=== PATIENT | male | born 1960 | race Two or more races ===

== ENCOUNTER 2017-02-17 09:33 | Day surgery (SDC) | payer BC ==
[2017-02-13 12:00] VITALS: BMI 25.7
[~2017-02-17 09:33] MED LIST: LACTATED RINGERS 1,000 ML IV SCH
[2017-02-17 10:38] VITALS: RESP 16; TEMP 97
[2017-02-17] MEDS ORDERED: LIDOCAINE 1% 20 ML VIAL (10MG/ML) FOR IV START INTRADERMA ONE (10:43)
[2017-02-17] MEDS ORDERED: PROPOFOL 10 MG/ML 20 ML VIAL IV ONE (11:23)
[2017-02-17] MEDS ORDERED: fentaNYL (PF) 50 MCG/ML 2 ML AMP ONE (11:23)
[2017-02-17] MEDS ORDERED: MIDAZOLAM 2 MG/2 ML VIAL ONE (11:23)
--- NOTE | 2017-02-17 12:03 | P.PCN ---
Date of Procedure: 02/17/17 Procedure(s) Performed: Procedure: Colonoscopy and biopsy. Preoperative diagnosis: Screening for neoplasia. Postoperative diagnosis: Diminutive rectal polyps biopsied, otherwise, exam to the cecum within normal limits. Preparation: HalfLytely prep. Sedation: Was provided by anesthesia. Brief clinical history: The patient is a 56-year-old male who is referred for this evaluation for screening for neoplasia age being his risk factor. The patient has no abdominal complaints, bleeding or anemia. No family history of colon cancer. This would be his first colonoscopy. Procedure: With the patient on his left lateral decubitus position and after informed consent and adequate sedation, the perianal area was inspected and it did not show any fissures or fistulas. He were no masses felt on digital rectal examination. The Olympus CFQ 160L video colonoscope was then inserted in the rectum in the usual fashion and advanced to the cecum. The mucosa appeared healthy. Few diminutive rectal polyps were noted but there was no significant polyps or tumors or any obvious diverticular disease. I biopsied the rectal polyps then I retroflexed endoscope in the rectum before the endoscope was withdrawn. The patient tolerated the procedure well. Plan: The patient was reassured. Will await biopsy results. I anticipate repeating this exam in 5 years. He will follow up with you as planned.
[2017-02-17 12:14] VITALS: BP 118/75; PULSE 58
== END 2017-02-17 12:43 | disposition home or self-care (01) ==
LOC: ORWHC2ENDO 09:33
DX: Z12.11 Encounter for screening for malignant neoplasm of colon (principal); K62.1 Rectal polyp; I10 Essential (primary) hypertension; E07.9 Disorder of thyroid, unspecified; Z79.1 Long term (current) use of non-steroidal anti-inflammatories (NSAID); Z79.899 Other long term (current) drug therapy; Z88.1 Allergy status to other antibiotic agents; Z88.5 Allergy status to narcotic agent; Z88.8 Allergy status to other drugs, medicaments and biological substances
CPT/HCPCS: 88305; 45380; J2250; J3010; J2704

== ENCOUNTER → 2018-07-20 | Outpatient (CLI) | payer BC | END | disposition home or self-care (01) | LOC: LABWHC1 10:24 | PROVIDERS: ATTEND Urology | DX: C61 Malignant neoplasm of prostate (principal); R97.21 Rising PSA following treatment for malignant neoplasm of prostate | CPT/HCPCS: 36415; 84153 ==

== ENCOUNTER → 2019-02-01 | Outpatient (CLI) | payer BC | LOC: LABWHC1 10:20 | PROVIDERS: ATTEND Urology | DX: R97.20 Elevated prostate specific antigen [PSA] (principal) | CPT/HCPCS: 36415; 84153 ==

== ENCOUNTER → 2020-02-04 | Outpatient (CLI) | payer BC | END | disposition home or self-care (01) | LOC: LABWHC1 08:50 | PROVIDERS: ATTEND Urology | DX: C61 Malignant neoplasm of prostate (principal) | CPT/HCPCS: 36415; 84153 ==

== ENCOUNTER 2021-03-15 17:17 | Emergency (ER) | payer BC ==
[2021-03-15 17:23] VITALS: TEMP 98.3
[2021-03-15] MEDS ORDERED: SODIUM CHLORIDE 0.9% 1,000 ML IV STA (18:11)
--- NOTE | 2021-03-15 18:19 | ED ---
General Adult HPI - General Chief complaint: Abdominal Pain Stated complaint: Abd pain Time Seen by Provider: 03/15/21 17:59 Source: patient Mode of arrival: ambulatory Limitations: no limitations - History of Present Illness Initial comments: 50-year-old male with a past medical history of hyperlipidemia hypertension, prostate cancer, thyroid disorder presents to the emergency room for a chief complaint of abdominal pain. Patient reports this pain has been ongoing for about 2-3 weeks. States it is all over his abdomen. Patient states he is heidi rned because he had his prostate removed secondary to prostate cancer 6 years ago. Apparently his PSA is elevated and he is concerned it could be related to the prostate cancer. Patient denies nausea vomiting diarrhea. Denies fevers or chills. Patient states bowel movements are normal.Patient has no other complaints at this time including shortness of breath, chest pain, nausea or vomiting, headache, or visual changes. - Related Data Home Medications Medication Instructions Recorded Confirmed Levothyroxine Sodium [Synthroid] 112 mcg PO DAILY 02/13/17 03/15/21 amLODIPine [Norvasc] 5 mg PO DAILY 03/15/21 03/15/21 lisinopriL 20 mg PO DAILY 03/15/21 03/15/21 Allergies Allergy/AdvReac Type Severity Reaction Status Date / Time cephalexin monohydrate AdvReac Itching Verified 03/15/21 19:42 [From Keflex] simvastatin AdvReac Itching Verified 03/15/21 19:42 tramadol HCl [From Ultram] AdvReac Itching Verified 03/15/21 19:42 Review of Systems ROS Statement: Those systems with pertinent positive or pertinent negative responses have been documented in the HPI. ROS Other: All systems not noted in ROS Statement are negative. Past Medical History Past Medical History: Cancer, Hyperlipidemia, Hypertension, Prostate Disorder, Thyroid Disorder Additional Past Medical History / Comment(s): Hx of shingles with nerve pain., back pain and right shoulder pain., hx of prostate cancer-states recent labs that he is concerned that cancer may have returned. History of Any Multi-Drug Resistant Organisms: None Reported Past Surgical History: Appendectomy, Tonsillectomy Additional Past Surgical History / Comment(s): 02-23-15 robotic assisted prostatectomy,bilateral lymphadenectomy, sinus sx, prostate bx., ear tubes Past Anesthesia/Blood Transfusion Reactions: No Reported Reaction Past Psychological History: No Psychological Hx Reported Smoking Status: Never smoker Past Alcohol Use History: None Reported Past Drug Use History: None Reported - Past Family History Sister(s) Family Medical History: Coronary Artery Disease (CAD), Diabetes Mellitus, Myocardial Infarction ([place]), Vascular Disorder Mother Family Medical History: Hypertension General Exam Limitations: no limitations General appearance: alert, in no apparent distress Head exam: Present: atraumatic, normocephalic, normal inspection Eye exam: Present: normal appearance, PERRL, EOMI. Absent: scleral icterus, conjunctival injection, periorbital swelling ENT exam: Present: normal exam, mucous membranes moist Neck exam: Present: normal inspection, full ROM. Absent: tenderness, meningismus, lymphadenopathy Respiratory exam: Present: normal lung sounds bilaterally. Absent: respiratory distress, wheezes, rales, rhonchi, stridor Cardiovascular Exam: Present: regular rate, normal rhythm, normal heart sounds GI/Abdominal exam: Present: soft, normal bowel sounds. Absent: distended, tenderness, guarding, rebound, rigid Neurological exam: Present: alert Course Vital Signs 03/15/21 03/15/21 17:21 20:30 Temperature 98.3 F Pulse Rate 73 80 Respiratory 20 18 Rate Blood Pressure 131/79 140/76 O2 Sat by Pulse 99 99 Oximetry - Reevaluation(s) Reevaluation #1: 03/15/21 18:19 Patient declines pain medication at this time. Medical Decision Making - Medical Decision Making Vitals are stable. CBC CMP unremarkable. Mild dehydration on her patient was given a liter of fluids. Lactic acid is normal. Urinalysis is unremarkable. CT abdomen and pelvis shows no definite acute process. There is moderate urinary bladder distention. However patient did have a large void after CT. Bladder scan was performed and 0 mL's were discovered. Patient declined any pain medication. At this time patient will be discharged home to follow up with urology and GI. He will return here for any worsening symptoms. - Lab Data Result diagrams: 03/15/21 18:21 03/15/21 18: Lab Results 03/15/21 03/15/21 03/15/21 Range/Units 18:21 18:21 18:21 WBC 9.1 (3.8-10.6) k/uL RBC 4.39 (4.30-5.90) m/uL Hgb 14.4 (13.0-17.5) gm/dL Hct 41.8 (39.0-53.0) % MCV 95.1 (80.0-100.0) fL MCH 32.8 (25.0-35.0) pg MCHC 34.5 (31.0-37.0) g/dL RDW 12.6 (11.5-15.5) % Plt Count 293 (150-450) k/uL MPV 7.4 Neutrophils % 71 % Lymphocytes % 19 % Monocytes % 7 % Eosinophils % 2 % Basophils % 0 % Neutrophils # 6.5 (1.3-7.7) k/uL Lymphocytes # 1.7 (1.0-4.8) k/uL Monocytes # 0.6 (0-1.0) k/uL Eosinophils # 0.1 (0-0.7) k/uL Basophils # 0.0 (0-0.2) k/uL Sodium 137 (137-145) mmol/L Potassium 4.5 (3.5-5.1) mmol/L Chloride 104 (98-107) mmol/L Carbon Dioxide 23 (22-30) mmol/L Anion Gap 10 mmol/L BUN 22 H (9-20) mg/dL Creatinine 1.05 (0.66-1.25) mg/dL Est GFR (CKD-EPI)AfAm >90 (>60 ml/min/1.73 sqM) Est GFR (CKD-EPI)NonAf 78 (>60 ml/min/1.73 sqM) Glucose 85 (74-99) mg/dL Plasma Lactic Acid Moses (0.7-2.0) mmol/L Calcium 9.7 (8.4-10.2) mg/dL Total Bilirubin 0.5 (0.2-1.3) mg/dL AST 25 (17-59) U/L ALT 18 (4-49) U/L Alkaline Phosphatase 66 (38-126) U/L Total Protein 7.0 (6.3-8.2) g/dL Albumin 4.3 (3.5-5.0) g/dL Amylase 45 (30-110) U/L Lipase 93 (23-300) U/L Urine Color Light Yellow Urine Appearance Clear (Clear) Urine pH 6.5 (5.0-8.0) Ur Specific [place] 1.007 (1.001-1.035) Urine Protein Negative (Negative) Urine Glucose (UA) Negative (Negative) Urine Ketones Negative (Negative) Urine Blood Negative (Negative) Urine Nitrite Negative (Negative) Urine Bilirubin Negative (Negative) Urine Urobilinogen <2.0 (<2.0) mg/dL Ur Leukocyte Esterase Negative (Negative) 03/15/21 Range/Units 18:21 WBC (3.8-10.6) k/uL RBC (4.30-5.90) m/uL Hgb (13.0-17.5) gm/dL Hct (39.0-53.0) % MCV (80.0-100.0) fL MCH (25.0-35.0) pg MCHC (31.0-37.0) g/dL RDW (11.5-15.5) % Plt Count (150-450) k/uL MPV Neutrophils % % Lymphocytes % % Monocytes % % Eosinophils % % Basophils % % Neutrophils # (1.3-7.7) k/uL Lymphocytes # (1.0-4.8) k/uL Monocytes # (0-1.0) k/uL Eosinophils # (0-0.7) k/uL Basophils # (0-0.2) k/uL Sodium (137-145) mmol/L Potassium (3.5-5.1) mmol/L Chloride (98-107) mmol/L Carbon Dioxide (22-30) mmol/L Anion Gap mmol/L BUN (9-20) mg/dL Creatinine (0.66-1.25) mg/dL Est GFR (CKD-EPI)AfAm (>60 ml/min/1.73 sqM) Est GFR (CKD-EPI)NonAf (>60 ml/min/1.73 sqM) Glucose (74-99) mg/dL Plasma Lactic Acid Moses 0.6 L (0.7-2.0) mmol/L Calcium (8.4-10.2) mg/dL Total Bilirubin (0.2-1.3) mg/dL AST (17-59) U/L ALT (4-49) U/L Alkaline Phosphatase (38-126) U/L Total Protein (6.3-8.2) g/dL Albumin (3.5-5.0) g/dL Amylase (30-110) U/L Lipase (23-300) U/L Urine Color Urine Appearance (Clear) Urine pH (5.0-8.0) Ur Specific [place] (1.001-1.035) Urine Protein (Negative) Urine Glucose (UA) (Negative) Urine Ketones (Negative) Urine Blood (Negative) Urine Nitrite (Negative) Urine Bilirubin (Negative) Urine Urobilinogen (<2.0) mg/dL Ur Leukocyte Esterase (Negative) Disposition Clinical Impression: Abdominal pain Disposition: HOME SELF-CARE Condition: Good Instructions (If sedation given, give patient instructions): Abdominal Pain (ED) Additional Instructions: Please follow-up with your doctor in one to 2 days. Follow-up with GI and urology as well. Return to the emergency room for any worsening symptoms. Is patient prescribed a controlled substance at d/c from ED?: No Referrals: Carlos Balderas MD [Primary Care Provider] - 1-2 days Daylin Jones MD [STAFF PHYSICIAN] - 1-2 days Jet Coles MD [STAFF PHYSICIAN] - 1-2 days Time of Disposition: 20:33
[2021-03-15 18:38] LABS: Appearance,Urine Clear (Clear); Basophils % (A) 0 %; Bilirubin,Urine Negative (Negative); Blood,Urine Negative (Negative); Color,Urine Light Yellow; Eosinophils # (A) 0.1 k/uL (0-0.7); Eosinophils % (A) 2 %; Glucose,Urine (UA) Negative (Negative); HCT 41.8 % (39.0-53.0); HGB 14.4 gm/dL (13.0-17.5); Ketones,Urine Negative (Negative); Leukocyte Esterase,Urine Negative (Negative); Lymphocytes # (A) 1.7 k/uL (1.0-4.8); Lymphocytes % (A) 19 %; MCH 32.8 pg (25.0-35.0); MCHC 34.5 g/dL (31.0-37.0); MCV 95.1 fL (80.0-100.0); Mean Platelet Volume 7.4; Monocytes # (A) 0.6 k/uL (0-1.0); Monocytes % (A) 7 %; Neutrophils # (A) 6.5 k/uL (1.3-7.7); Neutrophils % (A) 71 %; Nitrite,Urine Negative (Negative); PH, Urine 6.5 (5.0-8.0); Platelet Count 293 k/uL (150-450); Protein,Urine Negative (Negative); RBC 4.39 m/uL (4.30-5.90); RDW 12.6 % (11.5-15.5); Specific Gravity,Urine 1.007 (1.001-1.035); Urobilinogen,Urine <2.0 mg/dL (<2.0); WBC 9.1 k/uL (3.8-10.6)
[2021-03-15 18:48] LABS: ALT 18 U/L (4-49); AST 25 U/L (17-59); African American GFR (CKD) >90 (>60 ml/min/1.73 sqM); Albumin 4.3 g/dL (3.5-5.0); Alkaline Phosphatase 66 U/L (38-126); Amylase 45 U/L (30-110); Anion Gap 10 mmol/L; Blood Urea Nitrogen 22 mg/dL (9-20); Calcium 9.7 mg/dL (8.4-10.2); Carbon Dioxide 23 mmol/L (22-30); Chloride 104 mmol/L (98-107); Glucose 85 mg/dL (74-99); Lipase 93 U/L (23-300); Non-African American GFR(CKD) 78 (>60 ml/min/1.73 sqM); Potassium 4.5 mmol/L (3.5-5.1); Sodium 137 mmol/L (137-145); Total Bilirubin 0.5 mg/dL (0.2-1.3)
--- NOTE | 2021-03-15 19:34 | CT ---
EXAMINATION TYPE: CT abdomen pelvis w con DATE OF EXAM: 03/15/2021 COMPARISON: Abdominal pain generalized; history of prostate carcinoma HISTORY: Generalized abdominal pain x 3 weeks. History of prostate cancer. CT DLP: 945.6 mGycm Automated exposure control for dose reduction was used. TECHNIQUE: Helical acquisition of images was performed from the lung bases through the pelvis. CONTRAST: Performed without Oral Contrast and with IV Contrast, patient injected with 100 mL of Isovu e 300. FINDINGS: LUNG BASES: No significant abnormality is appreciated. LIVER/GB: No significant abnormality is appreciated. PANCREAS: No significant abnormality is seen. SPLEEN: No significant abnormality is seen. ADRENALS: No significant abnormality is seen. KIDNEYS: No significant abnormality is seen. FREE AIR: No free air is visualized. RETROPERITONEAL ADENOPATHY: None visualized REPRODUCTIVE ORGANS: No significant abnormality is seen URINARY BLADDER: Moderate urinary bladder distention is noted. PELVIC ADENOPATHY: None visualized. OSSEOUS STRUCTURES: No significant abnormality is seen. BOWEL: No significant abnormality is seen. OTHER: No acute vascular findings. IMPRESSION: NO DEFINITE ACUTE PROCESS. MODERATE URINARY BLADDER DISTENTION NOTED.
[2021-03-15 20:31] VITALS: BP 140/76; PULSE 80; RESP 18
== END 2021-03-15 20:42 | disposition home or self-care (01) ==
LOC: EC 17:17
DX: R10.84 Generalized abdominal pain (principal); E78.5 Hyperlipidemia, unspecified; I10 Essential (primary) hypertension; Z85.46 Personal history of malignant neoplasm of prostate
CPT/HCPCS: 51798; 36415; 80053; 82150; 83605; 83690; 85025; 81003; 74177; 99284; Q9967

== ENCOUNTER → 2021-05-15 | Outpatient (CLI) | payer BC | END | disposition home or self-care (01) | LOC: LABWHC1 16:16 | PROVIDERS: ATTEND Urology | DX: C61 Malignant neoplasm of prostate (principal) | CPT/HCPCS: 36415; 84153 ==

== ENCOUNTER → 2021-09-19 | Outpatient (CLI) | payer BC | END | disposition home or self-care (01) | LOC: LABWHC1 16:13 | PROVIDERS: ATTEND Radiology Radiation Oncology | DX: C61 Malignant neoplasm of prostate (principal); Z90.79 Acquired absence of other genital organ(s) | CPT/HCPCS: 36415; 84153 ==

== ENCOUNTER 2021-11-05 16:15 | Emergency (ER) | payer BC ==
[2021-11-05 16:26] VITALS: BP 156/78; PULSE 82; RESP 16; TEMP 98.3
--- NOTE | 2021-11-05 17:39 | ED ---
General Adult HPI - General Chief complaint: Extremity Problem,Nontraumatic Stated complaint: Right Knee Pain Time Seen by Provider: 11/05/21 17:30 Source: patient, family, RN notes reviewed, old records reviewed Mode of arrival: ambulatory Limitations: no limitations - History of Present Illness Initial comments: 61-year-old male presents with right knee swelling since yesterday. He states that the swelling has gone down however he does have pain behind the knee. He denies any trauma. He denies any fevers. He states that yesterday when he was walking and the knee started swelling and he developed some numbness that has resolved at this time. He describes the pain as an ache, 1 out of 10. He has had swelling in one of his knees in the past and it was drained. He seen Dr. Virgen a couple of weeks ago for left shoulder pain and has an MRI scheduled. He does have a history of prostate cancer and had treatment in July. -: days(s) (2) Location: right, lower extremity (knee) Radiation: non-radiation Severity scale (1-10): 1 Quality: aching Consistency: intermittent Improves with: none Worsens with: none Associated Symptoms: denies other symptoms Treatments Prior to Arrival: none - Related Data Home Medications Medication Instructions Recorded Confirmed Levothyroxine Sodium [Synthroid] 112 mcg PO DAILY 02/13/17 03/15/21 amLODIPine [Norvasc] 5 mg PO DAILY 03/15/21 03/15/21 lisinopriL [Prinivil] 20 mg PO DAILY 03/15/21 03/15/21 Allergies Allergy/AdvReac Type Severity Reaction Status Date / Time cephalexin monohydrate AdvReac Itching Verified 11/05/21 16:24 [From Keflex] simvastatin AdvReac Itching Verified 11/05/21 16:24 tramadol HCl [From Ultram] AdvReac Itching Verified 11/05/21 16:24 Review of Systems ROS Statement: Those systems with pertinent positive or pertinent negative responses have been documented in the HPI. ROS Other: All systems not noted in ROS Statement are negative. Past Medical History Past Medical History: Cancer, Hyperlipidemia, Hypertension, Prostate Disorder, Thyroid Disorder Additional Past Medical History / Comment(s): Hx of shingles with nerve pain., back pain and right shoulder pain., hx of prostate cancer-states recent labs that he is concerned that cancer may have returned. History of Any Multi-Drug Resistant Organisms: None Reported Past Surgical History: Appendectomy, Tonsillectomy Additional Past Surgical History / Comment(s): 02-23-15 robotic assisted prostatectomy,bilateral lymphadenectomy, sinus sx, prostate bx., ear tubes Past Anesthesia/Blood Transfusion Reactions: No Reported Reaction Past Psychological History: No Psychological Hx Reported Smoking Status: Never smoker Past Alcohol Use History: None Reported Past Drug Use History: None Reported - Past Family History Sister(s) Family Medical History: Coronary Artery Disease (CAD), Diabetes Mellitus, Myocardial Infarction ([place]), Vascular Disorder Mother Family Medical History: Hypertension General Exam Limitations: no limitations General appearance: alert, in no apparent distress Eye exam: Present: normal appearance Respiratory exam: Present: normal lung sounds bilaterally. Absent: respiratory distress, wheezes, rales, rhonchi, stridor, chest wall tenderness, accessory muscle use, decreased breath sounds Cardiovascular Exam: Present: regular rate, normal rhythm, normal heart sounds. Absent: systolic murmur, diastolic murmur, rubs, gallop, clicks Right Knee exam: Present: full ROM, swelling, effusion, full knee extension. Absent: tenderness, abrasion, laceration, ecchymosis, deformity, crepitus, dislocation, erythema Lower Leg exam: Present: normal inspection, full ROM. Absent: tenderness, swelling Neurovascular tendon exam: Present: no vascular compromise. Absent: abnormal cap refill Neurological exam: Present: alert, oriented X3 Psychiatric exam: Present: normal affect, normal mood Skin exam: Present: warm, dry, intact, normal color. Absent: rash, cyanosis, diaphoretic Course Vital Signs 11/05/21 16:24 Temperature 98.3 F Pulse Rate 82 Respiratory 16 Rate Blood Pressure 156/78 O2 Sat by Pulse 99 Oximetry Medical Decision Making - Medical Decision Making 61-year-old male presents with right knee swelling since yesterday. He denies any trauma. He denies any fevers. He states that it developed yesterday when he was walking. He does have a history of prostate cancer and had treatment in July. Ultrasound of the right lower extremity shows no evidence of DVT. Patient states that swelling has gone down and he is able to bear weight. This appears to be a bursitis patient does have history of bursitis in his knee and has had it drained in the past. He has full range of motion in the joint is not erythematous or warm. He is afebrile. He'll be referred to orthopedics for continuation of care. Patient is ambulatory he will be referred back to orthopedics Dr. Nayak for continuation of care. I did direct him to rest, ice and elevate the leg until seen by orthopedics. Return to the emergency room with any new or concerning symptoms. Case discussed with Dr. Bueno Disposition Clinical Impression: Swelling of knee joint, right Disposition: HOME SELF-CARE Condition: Good Instructions (If sedation given, give patient instructions): Swollen Knee Joint (ED) Additional Instructions: Rest, ice and elevate the right leg. Follow-up with the orthopedic doctor this week. Return to the emergency room with any new or concerning symptoms. Is patient prescribed a controlled substance at d/c from ED?: No Referrals: Teofilo Barclay [Primary Care Provider] - 1-2 days Time of Disposition: 19:04
--- NOTE | 2021-11-05 18:47 | US ---
EXAMINATION TYPE: US venous doppler duplex LE RT DATE OF EXAM: 11/05/2021 6:14 PM COMPARISON: NONE CLINICAL HISTORY: pain. Pain. No hx of DVT. Patient not taking blood thinners. SIDE PERFORMED: Right TECHNIQUE: The lower extremity deep venous system is examined utilizing real time linear array sonog bobby with graded compression, doppler sonography and color-flow sonography. VESSELS IMAGED: Common Femoral Vein Deep Femoral Vein Greater Saphenous Vein * Femoral Vein Popliteal Vein Small Saphenous Vein * Proximal Calf Veins (* superficial vessels) Right Leg: No evidence of DVT in veins imaged at this time. IMPRESSION: No evidence of deep vein thrombosis in the right leg.
== END 2021-11-05 19:16 | disposition home or self-care (01) ==
LOC: EC 16:15
DX: R22.41 Localized swelling, mass and lump, right lower limb (principal); E78.5 Hyperlipidemia, unspecified; I10 Essential (primary) hypertension; E07.9 Disorder of thyroid, unspecified; Z88.1 Allergy status to other antibiotic agents; Z85.46 Personal history of malignant neoplasm of prostate; Z90.49 Acquired absence of other specified parts of digestive tract
CPT/HCPCS: 99283

== ENCOUNTER → 2021-11-09 | Outpatient (CLI) | payer BC ==
--- NOTE | 2021-11-10 02:57 | MR ---
EXAMINATION TYPE: MR shoulder LT wo con DATE OF EXAM: 11/09/2021 COMPARISON: None HISTORY: Left shoulder pain x 6 mos, no trauma. Multiplanar multiecho imaging of the left shoulder without contrast. There is small amount of fluid around the biceps tendon. The glenoid robbie appear intact. There is de fect in the posterior aspect of the glenoid with fluid signal that could relate to old trauma. The AC joint is intact. There is no subacromial impingement. The supraspinatus tendon appears fairly normal. There is no retraction. I see no evidence of a full-thickness tear present. IMPRESSION: No evidence of rotator cuff tear. Increased fluid signal in the posterior glenoid with cortical defor mity that could relate to an old fracture. No acute fracture seen.
== END | disposition home or self-care (01) ==
LOC: RADMRIMAIN 17:26
PROVIDERS: ATTEND Orthopaedic Surgery
DX: M21.822 Other specified acquired deformities of left upper arm (principal)

== ENCOUNTER → 2022-01-07 | Outpatient (CLI) | payer BC | END | disposition home or self-care (01) | LOC: LABWHC1 16:15 | PROVIDERS: ATTEND Radiology Radiation Oncology | DX: C61 Malignant neoplasm of prostate (principal); R35.1 Nocturia; Z90.79 Acquired absence of other genital organ(s) | CPT/HCPCS: 36415; 84153 ==

== ENCOUNTER 2022-07-08 18:46 | Emergency (ER) | payer BC ==
[2022-07-08 18:59] VITALS: RESP 16; TEMP 97.9
[2022-07-08] MEDS ORDERED: HYDROcodone/APAP 7.5-325MG 1 EACH TAB PO ONE (19:09)
--- NOTE | 2022-07-08 19:15 | ED ---
General Adult HPI - General Chief complaint: Extremity Problem,Nontraumatic Stated complaint: possible blood clot Time Seen by Provider: 07/08/22 19:02 Source: patient Mode of arrival: wheelchair Limitations: no limitations - History of Present Illness Initial comments: Patient is a 62-year-old male presenting with chief complaint of left leg pain. Patient states there is been pain present for the last 3 days, it is mainly focused near the lateral inferior portion of the knee. Patient is not on any blood thinners. No history of blood clots. Patient was seen by urgent care and advised to report to ER. He denies any chest pain, shortness of breath, fever, chills, nausea, vomiting, abdominal pain, numbness, tingling, weakness. - Related Data Home Medications Medication Instructions Recorded Confirmed Levothyroxine Sodium [Synthroid] 112 mcg PO DAILY 02/13/17 03/15/21 amLODIPine [Norvasc] 5 mg PO DAILY 03/15/21 03/15/21 lisinopriL [Prinivil] 20 mg PO DAILY 03/15/21 03/15/21 Previous Rx's Medication Instructions Recorded methylPREDNISolone Dose Pack 4 mg PO DIRECTED #1 packet 07/08/22 [Medrol Dose Pack] Allergies Allergy/AdvReac Type Severity Reaction Status Date / Time cephalexin monohydrate AdvReac Itching Verified 11/05/21 16:24 [From Keflex] simvastatin AdvReac Itching Verified 11/05/21 16:24 tramadol HCl [From Ultram] AdvReac Itching Verified 11/05/21 16:24 Review of Systems ROS Statement: Those systems with pertinent positive or pertinent negative responses have been documented in the HPI. ROS Other: All systems not noted in ROS Statement are negative. Past Medical History Past Medical History: Cancer, Hyperlipidemia, Hypertension, Prostate Disorder, Thyroid Disorder Additional Past Medical History / Comment(s): Hx of shingles with nerve pain., back pain and right shoulder pain., hx of prostate cancer-states recent labs that he is concerned that cancer may have returned. History of Any Multi-Drug Resistant Organisms: None Reported Past Surgical History: Appendectomy, Tonsillectomy Additional Past Surgical History / Comment(s): 02-23-15 robotic assisted prostatectomy,bilateral lymphadenectomy, sinus sx, prostate bx., ear tubes Past Anesthesia/Blood Transfusion Reactions: No Reported Reaction Past Psychological History: No Psychological Hx Reported Smoking Status: Never smoker Past Alcohol Use History: None Reported Past Drug Use History: None Reported - Past Family History Sister(s) Family Medical History: Coronary Artery Disease (CAD), Diabetes Mellitus, Myocardial Infarction ([place]), Vascular Disorder Mother Family Medical History: Hypertension General Exam Limitations: no limitations General appearance: alert, in no apparent distress Head exam: Present: atraumatic, normocephalic, normal inspection Eye exam: Present: normal appearance, PERRL, EOMI. Absent: scleral icterus, conjunctival injection, periorbital swelling Neck exam: Present: normal inspection Respiratory exam: Present: normal lung sounds bilaterally. Absent: respiratory distress, wheezes, rales, rhonchi, stridor Cardiovascular Exam: Present: regular rate, normal rhythm, normal heart sounds. Absent: systolic murmur, diastolic murmur, rubs, gallop, clicks Left Lower Leg exam: Present: swelling (Mainly surrounding the knee), erythema, Homans' sign. Absent: full ROM (Limited secondary to pain) Neurovascular tendon exam: Present: no vascular compromise. Absent: motor deficit, sensory deficit Neurological exam: Present: alert, oriented X3, CN II-XII intact Psychiatric exam: Present: normal affect, normal mood Skin exam: Present: warm, dry, intact, normal color. Absent: rash Course Vital Signs 07/08/22 07/08/22 18:56 21:00 Temperature 97.9 F Pulse Rate 76 68 Respiratory 16 16 Rate Blood Pressure 161/60 160/58 O2 Sat by Pulse 100 98 Oximetry Medical Decision Making - Medical Decision Making Patient is a 62-year-old male presenting with chief complaint of left lower leg pain. Patient states the epicenter of his pain is towards the medial inferior portion of the knee. On examination there is swelling of the knee, no erythema or warmth on palpation. Patient admits to pain with range of motion. Distal pulses are palpated and full sensation is intact. CBC shows no leukocytosis or anemia. CRP is 1.5. ESR is 41. Venous Doppler study is negative for DVT. Knee x-ray shows a large effusion, as well as evidence of pseudogout. Patient will be treated for pseudogout with steroids, given Solu-Medrol here in the ER and discharged with Medrol Dosepak. Advised on supportive treatment and provided with work note. Follow-up with PCP. Report back to ER with any new or worsening symptoms. Discussed return parameters and answered all questions. Patient conveyed verbal understanding and agreed to the plan. I discussed this case in detail with my attending Dr. Sotelo. - Lab Data Result diagrams: 07/08/22 19:39 07/08/22 19:39 Lab Results 07/08/22 07/08/22 07/08/22 Range/Units 19:39 19:39 19:39 WBC 9.2 (3.8-10.6) k/uL RBC 4.65 (4.30-5.90) m/uL Hgb 14.5 (13.0-17.5) gm/dL Hct 44.7 (39.0-53.0) % MCV 96.1 (80.0-100.0) fL MCH 31.1 (25.0-35.0) pg MCHC 32.3 (31.0-37.0) g/dL RDW 12.3 (11.5-15.5) % Plt Count 350 (150-450) k/uL MPV 7.7 Neutrophils % 76 % Lymphocytes % 15 % Monocytes % 5 % Eosinophils % 3 % Basophils % 0 % Neutrophils # 7.1 (1.3-7.7) k/uL Lymphocytes # 1.3 (1.0-4.8) k/uL Monocytes # 0.5 (0-1.0) k/uL Eosinophils # 0.2 (0-0.7) k/uL Basophils # 0.0 (0-0.2) k/uL ESR 41 H (0-15) mm/hr PT (9.0-12.0) sec INR (<1.2) APTT (22.0-30.0) sec Sodium 137 (137-145) mmol/L Potassium 5.0 (3.5-5.1) mmol/L Chloride 100 (98-107) mmol/L Carbon Dioxide 24 (22-30) mmol/L Anion Gap 13 mmol/L BUN 24 H (9-20) mg/dL Creatinine 1.29 H (0.66-1.25) mg/dL Est GFR (CKD-EPI)AfAm 69 (>60 ml/min/1.73 sqM) Est GFR (CKD-EPI)NonAf 60 (>60 ml/min/1.73 sqM) Glucose 93 (74-99) mg/dL Plasma Lactic Acid Moses 1.3 (0.7-2.0) mmol/L Uric Acid 7.4 (3.5-8.5) mg/dL Calcium 9.8 (8.4-10.2) mg/dL Total Bilirubin 0.6 (0.2-1.3) mg/dL AST 26 (17-59) U/L ALT 19 (4-49) U/L Alkaline Phosphatase 73 (38-126) U/L C-Reactive Protein 1.5 H (<1.0) mg/dL Total Protein 7.3 (6.3-8.2) g/dL Albumin 4.5 (3.5-5.0) g/dL 07/08/22 Range/Units 19:39 WBC (3.8-10.6) k/uL RBC (4.30-5.90) m/uL Hgb (13.0-17.5) gm/dL Hct (39.0-53.0) % MCV (80.0-100.0) fL MCH (25.0-35.0) pg MCHC (31.0-37.0) g/dL RDW (11.5-15.5) % Plt Count (150-450) k/uL MPV Neutrophils % % Lymphocytes % % Monocytes % % Eosinophils % % Basophils % % Neutrophils # (1.3-7.7) k/uL Lymphocytes # (1.0-4.8) k/uL Monocytes # (0-1.0) k/uL Eosinophils # (0-0.7) k/uL Basophils # (0-0.2) k/uL ESR (0-15) mm/hr PT 12.6 H (9.0-12.0) sec INR 1.2 H (<1.2) APTT 27.3 (22.0-30.0) sec Sodium (137-145) mmol/L Potassium (3.5-5.1) mmol/L Chloride (98-107) mmol/L Carbon Dioxide (22-30) mmol/L Anion Gap mmol/L BUN (9-20) mg/dL Creatinine (0.66-1.25) mg/dL Est GFR (CKD-EPI)AfAm (>60 ml/min/1.73 sqM) Est GFR (CKD-EPI)NonAf (>60 ml/min/1.73 sqM) Glucose (74-99) mg/dL Plasma Lactic Acid Moses (0.7-2.0) mmol/L Uric Acid (3.5-8.5) mg/dL Calcium (8.4-10.2) mg/dL Total Bilirubin (0.2-1.3) mg/dL AST (17-59) U/L ALT (4-49) U/L Alkaline Phosphatase (38-126) U/L C-Reactive Protein (<1.0) mg/dL Total Protein (6.3-8.2) g/dL Albumin (3.5-5.0) g/dL Disposition Clinical Impression: Pseudogout Disposition: HOME SELF-CARE Condition: Good Instructions (If sedation given, give patient instructions): Gout (ED), Swollen Knee Joint (ED) Additional Instructions: Follow-up with PCP. Report back to ER with any new or worsening symptoms. Take medication as prescribed. Take Tylenol as needed for pain control. Prescriptions: methylPREDNISolone Dose Pack [Medrol Dose Pack] 4 mg PO DIRECTED #1 packet Is patient prescribed a controlled substance at d/c from ED?: No Referrals: Unruly Guzman MD [Primary Care Provider] - 1-2 days Time of Disposition: 22:28
[2022-07-08 19:53] LABS: Basophils % (A) 0 %; Eosinophils # (A) 0.2 k/uL (0-0.7); Eosinophils % (A) 3 %; HCT 44.7 % (39.0-53.0); HGB 14.5 gm/dL (13.0-17.5); Lymphocytes # (A) 1.3 k/uL (1.0-4.8); Lymphocytes % (A) 15 %; MCH 31.1 pg (25.0-35.0); MCHC 32.3 g/dL (31.0-37.0); MCV 96.1 fL (80.0-100.0); Mean Platelet Volume 7.7; Monocytes # (A) 0.5 k/uL (0-1.0); Monocytes % (A) 5 %; Neutrophils # (A) 7.1 k/uL (1.3-7.7); Neutrophils % (A) 76 %; Platelet Count 350 k/uL (150-450); RBC 4.65 m/uL (4.30-5.90); RDW 12.3 % (11.5-15.5); WBC 9.2 k/uL (3.8-10.6)
[2022-07-08 20:07] LABS: Albumin 4.5 g/dL (3.5-5.0); C Reactive Protein 1.5 mg/dL (<1.0); Calcium 9.8 mg/dL (8.4-10.2); Total Bilirubin 0.6 mg/dL (0.2-1.3); Total Protein 7.3 g/dL (6.3-8.2); Uric Acid 7.4 mg/dL (3.5-8.5)
[2022-07-08 20:18] LABS: INR 1.2 (<1.2); Partial Thromboplastin Time 27.3 sec (22.0-30.0); Prothrombin Time 12.6 sec (9.0-12.0)
--- NOTE | 2022-07-08 21:04 | US ---
EXAMINATION TYPE: US venous doppler duplex LE LT DATE OF EXAM: 07/08/2022 8:11 PM COMPARISON: NONE CLINICAL HISTORY: Pain and swelling. Pain and swelling in left leg SIDE PERFORMED: Left TECHNIQUE: The lower extremity deep venous system is examined utilizing real time linear array sonog bobby with graded compression, doppler sonography and color-flow sonography. VESSELS IMAGED: Common Femoral Vein Deep Femoral Vein Greater Saphenous Vein * Femoral Vein Popliteal Vein Small Saphenous Vein * Proximal Calf Veins (* superficial vessels) Left Leg: No evidence for DVT. Rouleaux flow noted in popliteal vein IMPRESSION: No evidence of left lower externally deep vein thrombosis.
[2022-07-08 21:05] LABS: Erythrocyte Sedimentation Rate 41 mm/hr (0-15)
[2022-07-08] MEDS ORDERED: MORPHINE SULFATE 4 MG/ML SYRINGE IVP STA (21:18)
--- NOTE | 2022-07-08 21:47 | XR ---
EXAMINATION TYPE: XR knee complete LT DATE OF EXAM: 07/08/2022 9:33 PM INDICATION: Patient age:Male; 62 years old; Reason for study: pain, swelling; PHH. COMPARISON: None. TECHNIQUE: The Left knee(s) was examined in 3 projections. Frontal, lateral and oblique. FINDINGS: No evidence of fracture. There is a large joint effusion. Osseous structures show mild os teophyte formation of the tibial plateau and patella. There is chondrocalcinosis present. Atheroscler osis of the arterial vasculature. IMPRESSION: 1. No acute osseous pathology. 2. Large joint effusion noted. Consider MRI for evaluation of the soft tissues. 3. Chondrocalcinosis.
[2022-07-08] MEDS ORDERED: methylPREDNISolone SOD SUCCI 125 MG/2 ML VIAL IV STA (22:27)
[2022-07-08 22:29] VITALS: BP 160/58; PULSE 68
== END 2022-07-08 23:09 | disposition home or self-care (01) ==
LOC: EC 18:46
DX: M10.9 Gout, unspecified (principal); Z88.1 Allergy status to other antibiotic agents; Z88.6 Allergy status to analgesic agent; Z88.8 Allergy status to other drugs, medicaments and biological substances; I10 Essential (primary) hypertension; E78.5 Hyperlipidemia, unspecified; E07.9 Disorder of thyroid, unspecified; Z79.890 Hormone replacement therapy
CPT/HCPCS: 36415; 80053; 85652; 83605; 84550; 85025; 85610; 85730; 86140; 73562; 93971; 99284; 96374; 96375; J2270

== ENCOUNTER → 2022-07-24 | Outpatient (CLI) | payer BC | END | disposition home or self-care (01) | LOC: LABWHC1 16:15 | PROVIDERS: ATTEND Radiology Radiation Oncology | DX: C61 Malignant neoplasm of prostate (principal); R35.1 Nocturia; Z90.79 Acquired absence of other genital organ(s) | CPT/HCPCS: 36415; 84153 ==

== ENCOUNTER → 2022-09-20 | Outpatient (CLI) | payer BC | END | disposition home or self-care (01) | LOC: LABWHC1 16:15 | PROVIDERS: ATTEND Radiology Radiation Oncology | DX: C61 Malignant neoplasm of prostate (principal); Z90.89 Acquired absence of other organs; R35.1 Nocturia; Z90.79 Acquired absence of other genital organ(s) | CPT/HCPCS: 36415; 84153 ==

== ENCOUNTER → 2023-01-25 | Outpatient (CLI) | payer BC ==
[2023-01-25 23:46] LABS: Basophils # (A) 0.06 X 10*3/uL (0.00-0.10); Eosinophils # (A) 0.12 X 10*3/uL (0.04-0.35); HCT 47.5 % (39.6-50.0); HGB 14.1 g/dL (13.0-17.0); Immature Grans, Automated 0.2 %; Lymphocytes # (A) 1.37 X 10*3/uL (0.90-5.00); Lymphocytes % (A) 22.9 %; MCHC 29.7 g/dL (32.0-37.0); MCV 101.1 fL (80.0-97.0); Monocytes # (A) 0.66 X 10*3/uL (0.20-1.00); NRBC Per 100 WBC 0 /100 WBCS (0.0-0.0); Neutrophils # (A) 3.76 X 10*3/uL (1.80-7.70); Neutrophils % (A) 62.9 %; Platelet Count 332 X 10*3/uL (140-440); RDW 13.1 % (11.5-14.5); WBC 5.98 X 10*3/uL (4.50-10.00)
[2023-01-26 08:28] LABS: ALT 21 U/L (10-49); AST 20 U/L (14-35); African American GFR (CKD) 78.9 (60.0-200.0); Albumin 4.4 g/dL (3.8-4.9); Alkaline Phosphatase 68 U/L (41-126); BUN/Creat Ratio 17.59 Ratio (12.00-20.00); Blood Urea Nitrogen 20.4 mg/dL (9.0-27.0); Calcium 9.7 mg/dL (8.7-10.3); Carbon Dioxide 26.3 mmol/L (20.0-27.5); Chloride 104 mmol/L (96-109); Chol/HDL Ratio 4.82 Ratio; Globulin 2.3 g/dL (1.6-3.3); Glucose 87 mg/dL (70-110); LDL Cholesterol,Calculated 209.5 mg/dL (0.0-131.0); Non-African American GFR(CKD) 68.1 (60.0-200.0); Sodium 142 mmol/L (135-145); Total Protein 6.7 g/dL (6.2-8.2)
== END | disposition home or self-care (01) ==
LOC: LABWHC1 09:34
PROVIDERS: ATTEND Radiology Radiation Oncology
DX: Z00.00 Encounter for general adult medical examination without abnormal findings (principal); Z11.59 Encounter for screening for other viral diseases; C61 Malignant neoplasm of prostate; E03.9 Hypothyroidism, unspecified; R35.1 Nocturia; Z90.89 Acquired absence of other organs; Z90.79 Acquired absence of other genital organ(s)
CPT/HCPCS: 36415; 80053; 80061; 84153; 84439; 84443; 85025; 86803

== ENCOUNTER → 2023-06-17 | Outpatient (CLI) | payer BC ==
--- NOTE | 2023-06-18 09:11 | CT ---
EXAMINATION TYPE: CT urogram wo/w con DATE OF EXAM: 06/17/2023 COMPARISON: 03/15/2021 HISTORY: Right groin pain at prostatectomy surgical site, hematuria on and off x [address] DLP: 1665.9 mGycm Automated exposure control for dose reduction was used. CONTRAST: Performed with IV Contrast, patient injected with 100 cc mL of Isovue 300. FINDINGS: Emphysematous changes involving the lung base. The liver is low in attenuation correlate for hepatic steatosis. Mild atrophy of the pancreas with no evidence of focal mass. There is no gallstones. Adrenal glands have a normal morphology. There is mild to moderate atheroscle rotic change of the aorta. Bowel gas pattern is nonspecific. There is a small hiatal hernia. No evide nce of bowel obstruction. Mild changes of diverticulosis. Small fat-containing anterior abdominal wall hernia. A multilevel hypertrophic and degenerative rausch es. Bilateral hip arthropathy. There is dilation of the proximal celiac trunk which likely represents either poststenotic dilation o r small aneurysm measuring 8 mm stable from previous CT scan. Postsurgical changes consistent with prior prostatectomy. The kidneys are symmetric in enhancement in there is symmetric excretion with no evidence of hydronep hrosis. No evidence of nephrolithiasis. There is an exophytic lesion extending off the left kidney measuring 5 Hounsfield units and 1.5 cm co mpatible with a Bosniak classification 1 simple cyst. Ureters are segmentally demonstrated to be of normal course and caliber. No definite filling defects are seen within the renal pelvis or visualized portion of the ureter. Bladder demonstrates mild wall thickening but no evidence of intraluminal mass or filling defect. IMPRESSION: 1. NO EVIDENCE OF FILLING DEFECT, HYDRONEPHROSIS, NEPHROLITHIASIS OR SUSPICIOUS APPEARING MASS. 2. THERE IS A BOSNIAK CLASSIFICATION 1 SIMPLE LEFT RENAL CYST. 3. PROSTATECTOMY CHANGES WITH NO REGIONAL ABNORMALITY NOTED. 4. MILD CONCENTRIC BLADDER WALL THICKENING MAY BE ON THE BASIS OF A MILD CHRONIC CYSTITIS. 5. HEPATIC STEATOSIS.
== END | disposition home or self-care (01) ==
LOC: RADCTMAIN 17:39
PROVIDERS: ATTEND Urology
DX: N28.1 Cyst of kidney, acquired (principal); N32.89 Other specified disorders of bladder; K76.0 Fatty (change of) liver, not elsewhere classified; R31.0 Gross hematuria; Z90.79 Acquired absence of other genital organ(s)
CPT/HCPCS: 74178; 74400; Q9967

== ENCOUNTER → 2023-07-28 | Outpatient (CLI) | payer BC | END | disposition home or self-care (01) | LOC: LABWHC1 16:17 | PROVIDERS: ATTEND Radiology Radiation Oncology | DX: C61 Malignant neoplasm of prostate (principal); R35.1 Nocturia; Z90.79 Acquired absence of other genital organ(s); Z90.89 Acquired absence of other organs | CPT/HCPCS: 36415; 84153 ==

== ENCOUNTER → 2023-08-04 | Outpatient (CLI) | payer BC ==
--- NOTE | 2023-08-04 12:41 | CT ---
EXAMINATION TYPE: CT brain wo con CT DLP: 1047.1 mGycm, Automated exposure control for dose reduction was used. DATE OF EXAM: 08/04/2023 12:36 PM COMPARISON: None. CLINICAL INDICATION:Male, 63 years old with history of R55 SYNCOPE, syncope TECHNIQUE: Brain: Multiple axial CT images of the brain were obtained without IV contrast. Coronal and sagittal reformats reviewed. FINDINGS: Brain: Extra-axial spaces: No abnormal extra-axial fluid collections. Ventricular system: Within normal limits Cerebral parenchyma: Mild cerebral volume loss. No acute intraparenchymal hemorrhage or mass effect. The lara-white junction is well differentiated. Scattered hypoattenuating areas are seen within the white matter. Cerebellum: Unremarkable. Mass effect: No evidence of midline shift. Intracranial vasculature: Atherosclerotic calcifications of the intracranial vessels. Soft tissues: Normal. Calvarium/osseous structures: No depressed skull fracture. Paranasal sinuses and mastoid air cells: Mastoid air cells are clear. Air-fluid level within the righ t maxillary sinus. Remaining paranasal sinuses are clear. Visualized orbits: Orbital contents are intact. IMPRESSION: 1. No acute intracranial process. 2. Nonspecific white matter changes, likely secondary to chronic small vessel ischemic disease. 3. Air-fluid level within the right maxillary sinus. Correlate for acute sinusitis.
--- NOTE | 2023-08-04 18:32 | CA ---
Transthoracic Echo Report Name: Jet Niño Age: 63 Gender: M : 1960 Exam Date: 08/04/2023 12:52 Exam Location: [facility] Ht (in): 70 Wt (lb): 175 Ordering Physician: Unruly Guzman MD Attending/Referring Phys: Parcel [employer] Weigher Nisreen Valle [facility] Procedure CPT: Indications: R55 Syncope Cardiac Hx: Technical Quality: Fair Contrast 1: Total Dose (mL): Contrast 2: Total Dose (mL): MEASUREMENTS (Male / Female) Normal Values 2D ECHO LV Diastolic Diameter PLAX 5.0 cm 4.2 - 5.9 / 3.9 - 5.3 cm LV Systolic Diameter PLAX 3.8 cm IVS Diastolic Thickness 1.1 cm 0.6 - 1.0 / 0.6 - 0.9 cm LVPW Diastolic Thickness 1.1 cm 0.6 - 1.0 / 0.6 - 0.9 cm LV Relative Wall Thickness 0.4 LVOT Diameter 2.0 cm LV Diastolic Volume MOD BP 103.7 cm??? 67 - 155 / 56 - 104 cm??? LV Systolic Volume MOD BP 56.1 cm??? 22 - 58 / 19 - 49 cm??? LV Ejection Fraction MOD BP 45.9 % >= 55 % LV Cardiac Index MOD BP 1556.9 cm???/min???m??? LV Diastolic Volume MOD 4C 90.4 cm??? LV Systolic Volume MOD 4C 48.0 cm??? LV Ejection Fraction MOD 4C 46.9 % LV Cardiac Index MOD 4C 1387.4 cm???/min???m??? LV Diastolic Length 4C 8.0 cm LV Systolic Length 4C 6.8 cm LV Diastolic Volume MOD 2C 116.5 cm??? LV Systolic Volume MOD 2C 63.7 cm??? LV Ejection Fraction MOD 2C 45.3 % LV Cardiac Index MOD 2C 1724.5 cm???/min???m??? LV Diastolic Length 2C 8.2 cm LV Systolic Length 2C 6.6 cm M-MODE Aortic Root Diameter MM 3.1 cm LA Systolic Diameter MM 3.1 cm LA Ao Ratio MM 1.0 AV Cusp Separation MM 2.0 cm DOPPLER AV Peak Velocity 146.2 cm/s AV Peak Gradient 8.5 mmHg AV Mean Velocity 94.7 cm/s AV Mean Gradient 4.1 mmHg AV Velocity Time Integral 27.1 cm AI Peak Velocity 388.3 cm/s AI Peak Gradient 60.3 mmHg AI Pressure Half Time 425.4 ms LVOT Peak Velocity 151.1 cm/s LVOT Peak Gradient 9.1 mmHg LVOT Velocity Time Integral 30.0 cm LVOT Stroke Volume 98.0 cm??? LVOT Stroke Volume Index 49.7 ml/m??? LVOT Cardiac Index 3204.7 cm???/min???m??? AV Area Cont Eq vti 3.6 cm??? AV Area Cont Eq pk 3.4 cm??? Mitral E Point Velocity 75.0 cm/s Mitral A Point Velocity 105.2 cm/s Mitral E to A Ratio 0.7 MV Deceleration Time 126.7 ms LV E' Lateral Velocity 9.7 cm/s Mitral E to LV E' Lateral Ratio 7.8 LV E' Septal Velocity 10.9 cm/s Mitral E to LV E' Septal Ratio 6.9 Right Atrial Pressure 3.0 mmHg FINDINGS Left Ventricle Mildly increased left ventricular wall thickness. Left ventricular cavity size normal. Mildly decreased left ventricular ejection fraction. Left ventricular ejection fraction is estimated at 45-50%. Right Ventricle Normal right ventricular size. Right Atrium Upper normal right atrial size. Left Atrium Mild left atrial dilatation. Mitral Valve Structurally normal mitral valve. No mitral regurgitation. Aortic Valve Trileaflet aortic valve. Diffuse thickening (sclerosis) of the aortic valve cusps without reduced excursion. [id number] aortic regurgitation. Tricuspid Valve Structurally normal tricuspid valve. No tricuspid regurgitation. Pulmonic Valve Pulmonic valve not well visualized. Pericardium No pericardial effusion. Aorta Normal size aortic root. CONCLUSIONS 1. Mild global hypokinesis of the left ventricle 2. Aortic sclerosis with [id number] aortic regurgitation Previewed by: Dr. Otis Belcher MD (Electronically Signed) Final Date: 04 August 2023 18:31
== END | disposition home or self-care (01) ==
LOC: RADCTMAIN 12:17
PROVIDERS: ATTEND Internal Medicine
DX: I35.1 Nonrheumatic aortic (valve) insufficiency (principal); R55 Syncope and collapse; R90.82 White matter disease, unspecified
CPT/HCPCS: 70450; 93306

== ENCOUNTER → 2023-09-04 | Outpatient (CLI) | payer BC ==
--- NOTE | 2023-09-10 10:19 | PE ---
EXAMINATION TYPE: PET CT fusion skull to thigh DATE OF EXAM: 09/04/2023 COMPARISON: CT urogram 06/17/2023 Prior PET/CT: None HISTORY: Prostate cancer TECHNIQUE: Following the intravenous administration of 4.51 mCi gallium PSMA, whole body images are performed from the skull base to the midthigh. Images are reviewed on the computer in the coronal, a xial, and sagittal planes. Reconstructed rotating images are created on independent workstation and reviewed on the computer. A localization and attenuation correction CT is performed in conjunction with the PET scan. DLP: 650.29 mGycm SCAN: Subsequent Blood glucose: NA mg/dL FINDINGS: NECK: Normal uptake within salivary glands. THORAX: No abnormal uptake ABDOMEN: No abnormal uptake PELVIS: There is a small focus of radiotracer within the right greater sciatic foramen, image 215, MUNOZ V 9.34; suspicious for small metastatic lesion. An additional focus is slightly more inferior, image 222, SUV 26.91. No suspicious uptake at the prostatectomy site is evident. Normal activity within the bowel is presen t. OSSEOUS STRUCTURES: No abnormal uptake LOCALIZATION CT: Suspicious CT abnormality to correspond to the uptake is not clearly evident. Small lymph node may be present. COMPARISON: None IMPRESSION: 1. Two small foci of suspicious uptake within the right greater sciatic foramen. Metastasis should be considered. 2. Distant metastases are not otherwise evident.
== END | disposition home or self-care (01) ==
LOC: RADPETMAIN 10:09
PROVIDERS: ATTEND Radiology Radiation Oncology
DX: C61 Malignant neoplasm of prostate (principal); Z90.89 Acquired absence of other organs; Z90.79 Acquired absence of other genital organ(s)
CPT/HCPCS: 78815; A9596

== ENCOUNTER → 2023-12-01 | Outpatient (CLI) | payer BC ==
[2023-12-01 16:07] LABS: ALT 27 U/L (10-49); AST 17 U/L (14-35); Albumin 4.5 g/dL (3.8-4.9); Alkaline Phosphatase 59 U/L (41-126); BUN/Creat Ratio 19.33 Ratio (12.00-20.00); Blood Urea Nitrogen 23.2 mg/dL (9.0-27.0); Calcium 10.4 mg/dL (8.7-10.3); Carbon Dioxide 26.9 mmol/L (21.6-31.8); Chloride 104 mmol/L (96-109); Chol/HDL Ratio 3.39 Ratio; Globulin 2.5 g/dL (1.6-3.3); Glucose 99 mg/dL (70-110); LDL Cholesterol,Calculated 133.4 mg/dL (0.0-131.0); Potassium 5.6 mmol/L (3.5-5.5); Sodium 141 mmol/L (135-145); T4, Free (Free Thyroxine) 1.36 ng/dL (0.80-1.80); Total Bilirubin 0.2 mg/dL (0.3-1.2)
== END | disposition home or self-care (01) ==
LOC: LABWHC1 08:57
PROVIDERS: ATTEND Internal Medicine
DX: E78.5 Hyperlipidemia, unspecified (principal); E03.9 Hypothyroidism, unspecified
CPT/HCPCS: 36415; 80053; 80061; 84439; 84443

== ENCOUNTER → 2023-12-10 | Outpatient (CLI) | payer BC ==
[2023-12-11 04:51] LABS: Prostate Specific Antigen 0.8 ng/mL (0.000-4.500)
== END | disposition home or self-care (01) ==
LOC: LABWHC1 16:16
PROVIDERS: ATTEND Urology
DX: C61 Malignant neoplasm of prostate (principal)
CPT/HCPCS: 36415; 84153; 84403

== ENCOUNTER → 2024-03-31 | Outpatient (CLI) | payer BC ==
[2024-03-31 21:26] LABS: Prostate Specific Antigen 0.06 ng/mL (0.000-4.500); Testosterone <10.00 ng/dL (86.98-780.10)
== END | disposition home or self-care (01) ==
LOC: LABWHC1 16:15
PROVIDERS: ATTEND Urology
DX: C61 Malignant neoplasm of prostate (principal)
CPT/HCPCS: 36415; 84153; 84403

== ENCOUNTER → 2024-05-25 | Outpatient (CLI) | payer BC ==
--- NOTE | 2024-06-15 13:36 | CT ---
Patient: Jet Barry H Ordering Physician: Unknown, Unknown ID: [id number] Phone, Pager: Phone: N/A Pager: N/A : 1960 Age/Gender: 64Y, M Primary Location: N/A Procedure: CT abdomen pelvis w con Study Date: 05/25/2024 12:36:00 PM EXAMINATION TYPE: CT abdomen pelvis w con DATE OF EXAM: 05/25/2024 COMPARISON: 09/04/2023 PET/CT INDICATION: Prostate cancer DLP: 1358 mGycm, Automated exposure control for dose reduction was used. CONTRAST: 80 mL of Isovue 300. Study performed without Oral Contrast TECHNIQUE: Axial images were obtained from above the diaphragm to the pubic rami in the axial plane a t 5 mm thick sections. Reconstructed images are reviewed on the computer in the coronal plane. FINDINGS: Limited CT sections are obtained the lung bases. The lung bases are clear. CT ABDOMEN: Liver: Normal Spleen: Normal Pancreas: Normal Adrenal glands: The adrenal glands are normal. Gallbladder: Normal Kidneys: No masses are evident. No hydronephrosis is present. There is a 2.0 cm cyst in the posteri or lateral left mid kidney. Delayed images were obtained through the kidneys, which remain unremarka ble. Aorta: Vascular calcification is within the aorta. Inferior vena cava: Normal. CT PELVIS: Loops of bowel within the abdomen and pelvis are normal. Fecal debris is through the ascending and t ransverse colon. The study is without oral contrast limiting bowel evaluation Appendix: Normal as visualized. Urinary bladder: Normal. Genitourinary structures: Prostate may be surgically absent. Correlate with the history Osseous structures: No suspicious lytic or sclerotic lesions. No suspicious soft tissue abnormality i n the right sciatic foramen IMPRESSION: 1. No suspicious changes to suggest metastatic disease based on CT examination.
== END | disposition home or self-care (01) ==
LOC: RADCTMAIN 13:00
PROVIDERS: ATTEND Radiology Radiation Oncology
DX: C61 Malignant neoplasm of prostate (principal); Z90.79 Acquired absence of other genital organ(s); Z90.89 Acquired absence of other organs; R35.1 Nocturia
CPT/HCPCS: 74177; 36415; Q9967

== ENCOUNTER → 2024-06-19 | Outpatient (CLI) | payer BC | END | disposition home or self-care (01) | LOC: LABWHC1 09:03 | PROVIDERS: ATTEND Urology | DX: R97.20 Elevated prostate specific antigen [PSA] (principal) | CPT/HCPCS: 36415; 84153 ==

== ENCOUNTER 2024-10-07 09:54 | Day surgery (SDC) | payer BC ==
[2024-10-07] MEDS: EMPTY BAG 1 BAG with SODIUM CHLORIDE 0.9% 1,000 ML IV SCH (10:25)
[2024-10-07] MEDS: IV FLUID CONTINUATION 1,000 ML IV ONE (10:25)
[2024-10-07 10:51] LABS: African American GFR (CKD) 59 (>60 ml/min/1.73 sqM); Anion Gap 9 mmol/L; Blood Urea Nitrogen 40 mg/dL (9-20); Calcium 10.2 mg/dL (8.4-10.2); Carbon Dioxide 24 mmol/L (22-30); Chloride 103 mmol/L (98-107); Glucose 100 mg/dL (74-99); Non-African American GFR(CKD) 51 (>60 ml/min/1.73 sqM); Potassium 5.4 mmol/L (3.5-5.1); Sodium 136 mmol/L (137-145)
[2024-10-07 11:49] LABS: Basophils % (A) 1 %; Eosinophils # (A) 0.2 k/uL (0-0.7); Eosinophils % (A) 2 %; HCT 43.2 % (39.0-53.0); HGB 13.8 gm/dL (13.0-17.5); Lymphocytes # (A) 1.9 k/uL (1.0-4.8); Lymphocytes % (A) 21 %; MCH 30.9 pg (25.0-35.0); MCV 96.4 fL (80.0-100.0); Mean Platelet Volume 7.4; Monocytes # (A) 0.7 k/uL (0-1.0); Monocytes % (A) 7 %; Neutrophils # (A) 6.1 k/uL (1.3-7.7); Neutrophils % (A) 68 %; Platelet Count 382 k/uL (150-450); RBC 4.48 m/uL (4.30-5.90); RDW 13.7 % (11.5-15.5)
[2024-10-07] MEDS: MIDAZOLAM 2 MG/2 ML VIAL IVP ONE (12:08)
[2024-10-07] MEDS: fentaNYL (PF) 50 MCG/ML 2 ML AMP IVP ONE (12:08)
[2024-10-07] MEDS: LIDOCAINE 1% INJ 10MG/ML (20 ML MDV) SQ ONE (12:09)
[2024-10-07] MEDS: IOPAMIDOL-250 100ML BTL INTRAARTER ONE ×2 (12:20)
[2024-10-07] MEDS ORDERED: NALOXONE 0.4 MG/ML 1 ML VIAL IVP PRN (12:22)
--- NOTE | 2024-10-07 12:26 | P.PCN ---
Date of Procedure: 10/07/24 Operative Findings: AN ABDOMINAL AORTOGRAM AND BILATERAL LOWER EXTREMITIES RUNOFF PERFORMING PHYSICIAN: Jono Portillo MD PROCEDURE PERFORMED: 1. An abdominal aortogram 2. Bilateral lower extremities runoff 3. Ultrasound-guided access of the right common femoral artery INDICATION: Symptomatic 62-year-old gentleman with abnormal lower extremities arterial duplex study COMPLICATION: None LEVEL OF SEDATION: Moderate was sedation length of 10 minutes APPROACH: Right common femoral artery PROCEDURE DESCRIPTION: After obtaining informed consent and explaining the procedure benefits, risks, and complications, the patient was brought to the cardiac labor relations supervisor. The right groin was prepped and draped in sterile fashion. The right common femoral artery was cannulated using micropuncture technique, under ultrasound guidance. A micropuncture wire was advanced, and the micropuncture sheath was advanced over the wire, then the micropuncture sheath was exchanged over an 0.35 wire into a 5-Anguillan sheath dilator assembly then the wire and dilator were removed and sheath was flushed. We did an abdominal aortogram and bilateral lower extremities runoff using 5- Anguillan pigtail catheter using a power injection. The catheter was initially placed at the level of the renal arteries, and it was pulled into above the bifurcation of the aorta into right and left common iliac arteries. The procedure was completed and there was no complications. SELECTIVE PERIPHERAL ANGIOGRAM: The abdominal aorta: Is angiographically normal The common iliac arteries: The right common iliac artery appeared to have mild disease only in the left common iliac artery appeared to have a tight lesion The external iliac arteries: Both external's appear to have mild disease only The internal iliac arteries: Both internal's appear to be patent The common femoral arteries: Both femorals appear to be normal Superficial femoral arteries: The right SFA has a tight lesion in the midportion and the left SFA has moderate disease only Popliteal arteries: Both popliteals appeared to have mild disease only Below the knees: At least two-vessel runoff below the knee bilaterally CONCLUSION: 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
--- NOTE | 2024-10-07 13:19 | IR ---
EXAMINATION TYPE: IR angio abdominal w runoff DATE OF EXAM: 10/07/2024 FLUOROSCOPY right leg pain,1.4min fluoro, 31.84Hwaq9 100 images are provided. [facility], , 10/07/2024 1:17 PM
[2024-10-07] MEDS ORDERED: ZOLPIDEM 5 MG TAB PO PRN (14:15)
[2024-10-07] MEDS ORDERED: ALPRAZolam 0.5 MG TAB PO PRN (14:15)
[2024-10-07] MEDS ORDERED: ALPRAZolam 0.25 MG TAB PO PRN (14:15)
[2024-10-07] MEDS: SODIUM CHLORIDE 0.9% 1,000 ML in EMPTY BAG 1 BAG IV SCH (16:28)
[2024-10-08 04:35] LABS: Basophils % (A) 1 %; Eosinophils # (A) 0.1 k/uL (0-0.7); Eosinophils % (A) 2 %; HCT 38.4 % (39.0-53.0); HGB 12.3 gm/dL (13.0-17.5); Lymphocytes # (A) 1.5 k/uL (1.0-4.8); Lymphocytes % (A) 22 %; MCH 30.8 pg (25.0-35.0); MCHC 32.1 g/dL (31.0-37.0); MCV 96.1 fL (80.0-100.0); Monocytes # (A) 0.6 k/uL (0-1.0); Monocytes % (A) 8 %; Neutrophils # (A) 4.4 k/uL (1.3-7.7); Neutrophils % (A) 66 %; Platelet Count 312 k/uL (150-450); RDW 13.6 % (11.5-15.5); WBC 6.7 k/uL (3.8-10.6)
[2024-10-08 04:44] LABS: African American GFR (CKD) 67 (>60 ml/min/1.73 sqM); Anion Gap 9 mmol/L; Blood Urea Nitrogen 42 mg/dL (9-20); Calcium 9.8 mg/dL (8.4-10.2); Carbon Dioxide 21 mmol/L (22-30); Chloride 107 mmol/L (98-107); Glucose 86 mg/dL (74-99); Non-African American GFR(CKD) 58 (>60 ml/min/1.73 sqM); Potassium 5.3 mmol/L (3.5-5.1); Sodium 137 mmol/L (137-145)
[2024-10-08] MEDS: LEVOTHYROXINE 112 MCG TAB PO SCH (06:23)
[2024-10-08] MEDS: SODIUM CHLORIDE 0.9% 1,000 ML in EMPTY BAG 1 BAG IV ONE (06:24)
[2024-10-08] MEDS ORDERED: HEPARIN SODIUM,PORCINE (1 ML) 2,500 UNIT in SODIUM CHLORIDE 0.9% 250 ML IRRIGATION PRN (07:00)
[2024-10-08] MEDS ORDERED: HEPARIN SODIUM,PORCINE 10,000 UNIT in SODIUM CHLORIDE 0.9% 1,000 ML IRRIGATION PRN (07:00)
[2024-10-08] MEDS ORDERED: ASPIRIN 325 MG TAB PO PRN (07:00)
[2024-10-08] MEDS: EZETIMIBE 10 MG TAB PO SCH (08:16)
[2024-10-08] MEDS: LOSARTAN 50 MG TAB PO SCH (08:16)
[2024-10-08] MEDS: IV FLUID CONTINUATION 1,000 ML IV ONE (09:58)
[2024-10-08] MEDS: HEPARIN SODIUM,PORCINE 10,000 UNIT in SODIUM CHLORIDE 0.9% 1,000 ML IRRIGATION ONE (09:58)
[2024-10-08] MEDS: fentaNYL (PF) 50 MCG/ML 2 ML AMP IVP ONE (10:00)
[2024-10-08] MEDS: MIDAZOLAM 2 MG/2 ML VIAL IVP ONE (10:00)
[2024-10-08] MEDS: LIDOCAINE 1% INJ 10MG/ML (20 ML MDV) SQ ONE (10:11)
[2024-10-08] MEDS: HEPARIN SODIUM 1,000 UN/ML (10ML VL) IV ONE (10:18)
[2024-10-08] MEDS: CLOPIDOGREL 75 MG TAB PO ONE (10:26)
[2024-10-08] MEDS: NITROGLYCERIN 1000MCG/10ML SYRINGE INTRAARTER ONE (10:45)
[2024-10-08] MEDS: niCARdipine Syringe (1,000 mcg/10 mL) INTRAARTER ONE (10:46)
[2024-10-08] MEDS ORDERED: NALOXONE 0.4 MG/ML 1 ML VIAL IVP PRN (11:06)
[2024-10-08] MEDS: IOPAMIDOL-250 100ML BTL INTRAARTER ONE (11:12)
--- NOTE | 2024-10-08 11:12 | P.PCN ---
Date of Procedure: 10/08/24 Operative Findings: PERCUTANEOUS PERIPHERAL INTERVENTION Performing physician Jono Portillo M.D. Procedure performed 1. Successful angioplasty of the right SFA 2. Adjunctive use of atherectomy and IVUS of the right SFA 3. Gradient measurement across the left iliac artery 4. Ultrasound-guided access of the left common femoral Indication Symptomatic 64-year-old gentleman with known severe right SFA disease Approach Left common femoral artery Complications None Level of sedation Moderate with a sedation time of 55 minutes Procedure description After attending informed consent the patient was brought to the cardiac catheter. The left common femoral artery was cannulated using micropuncture technique under ultrasound guidance a micropuncture wire passed easily then I placed a 6 Lao 11 cm sheath at the left common femoral artery with after that I did go up and over using a 3 5 stiff Glidewire with the backup support of 5 Lao rim catheter. The wire was advanced to the right SFA. After that I did exchange my 11 cm sheath into 70 cm sheath using 035 stiff Glidewire. After that right SFA angiogram was performed and we identified the 2 tight lesions involving the mid right SFA. Intravascular ultrasound was performed and showed a diameter around 6 mm with noncalcified vessel. Atherectomy was performed using the Hawk 1 device. Subsequently I did balloon angioplasty using 6 mm balloon and that was a noncompliant balloon and finally a 6 mm drug-coated balloon was applied with final angiogram showing excellent angiographic results. After that I did a gradient measurement across the left common iliac artery which showed that the lesion was not severely stenotic. The procedure was completed with no complication. Exchanged my long sheath into short sheath using a 3 5 stiff Glidewire before I deployed the Angio-Seal device Postprocedure management 1. Dual antiplatelet therapy 2. Aggressive cholesterol control 3. Risk factors modification 4. Follow-up with the patient
[2024-10-08] MEDS: SODIUM CHLORIDE 0.9% 1,000 ML in EMPTY BAG 1 BAG IV SCH (11:33)
--- NOTE | 2024-10-08 11:38 | IR ---
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 [facility], , 10/08/2024 11:35 AM
[2024-10-08 13:41] VITALS: RESP 14; TEMP 97.6
[2024-10-08 15:26] VITALS: BP 150/78; PULSE 83
--- NOTE | 2024-10-08 19:21 | P.DS ---
Providers Attending physician: Jono Portillo Primary care physician: [place] [facility] Course: The patient is a 64-year-old gentleman who underwent a earlier today successful balloon angioplasty of the right SFA with a good angiographic results from left groin approach The left common femoral artery hemostasis was performed using Angio-Seal The patient will be discharged home on dual antiplatelet therapy and lipid- lowering agents. He has a statin intolerance I will follow-up with the patient next week in the office Patient Condition at Discharge: Fair Plan - Discharge Summary Discharge Rx Participant: No New Discharge Prescriptions: New Clopidogrel [Plavix] 75 mg PO DAILY #90 tablet Continue Levothyroxine Sodium [Synthroid] 112 mcg PO DAILY Evolocumab [Repatha Sureclick] 140 mg SQ Q14D Ezetimibe [Zetia] 10 mg PO DAILY Losartan [Cozaar] 50 mg PO DAILY Aspirin 81 mg PO DAILY Discharge Medication List Levothyroxine Sodium [Synthroid] 112 mcg PO DAILY 02/13/17 [History] Aspirin 81 mg PO DAILY 10/05/24 [History] Evolocumab [Repatha Sureclick] 140 mg SQ Q14D 10/05/24 [History] Ezetimibe [Zetia] 10 mg PO DAILY 10/05/24 [History] Losartan [Cozaar] 50 mg PO DAILY 10/05/24 [History] Clopidogrel [Plavix] 75 mg PO DAILY #90 tablet 10/08/24 [Rx] Follow up Appointment(s)/Referral(s): Jono Portillo MD [STAFF PHYSICIAN] - 1 Week (Office will call with appointment date and time) Patient Instructions/Handouts: Peripheral Vascular Angioplasty (DC) Discharge Disposition: HOME SELF-CARE
[2024-10-09] MEDS ORDERED: CLOPIDOGREL 75 MG TAB PO SCH (09:00)
== END 2024-10-08 15:51 | disposition home or self-care (01) ==
LOC: CATHCVL 09:54 → 6NMEDSUR 12:16 → CATHCVL 10-08 15:51
PROVIDERS: ATTEND Internal Medicine Interventional Cardiology
DX: I70.223 Atherosclerosis of native arteries of extremities with rest pain, bilateral legs (principal); I65.23 Occlusion and stenosis of bilateral carotid arteries; I11.9 Hypertensive heart disease without heart failure; I42.8 Other cardiomyopathies; E78.5 Hyperlipidemia, unspecified; I35.1 Nonrheumatic aortic (valve) insufficiency; I47.19 Other supraventricular tachycardia; R00.1 Bradycardia, unspecified; Z79.890 Hormone replacement therapy; Z79.82 Long term (current) use of aspirin; Z79.620 Long term (current) use of immunosuppressive biologic; Z79.899 Other long term (current) drug therapy; Z85.46 Personal history of malignant neoplasm of prostate; Z78.9 Other specified health status; Z82.49 Family history of ischemic heart disease and other diseases of the circulatory system; Z88.1 Allergy status to other antibiotic agents
CPT/HCPCS: 36200; 37225; 75625; 75716; 76937; 80048 ×2; 85025 ×2; C1760; C1894 ×4; C1769 ×5; C1714; C1753; C2623; J2250 ×2; J1644 ×2; J2003 ×2; J3010 ×2; Q9966 ×2; J2305

== ENCOUNTER 2024-10-12 17:51 | Emergency (ER) | payer BC ==
--- NOTE | 2024-10-12 18:24 | ED ---
Extremity Problem HPI - General Chief complaint: Extremity Problem,Nontraumatic Stated complaint: Shantanu called for US Time Seen by Provider: 10/12/24 18:17 Source: patient, family, EMS, RN notes reviewed Mode of arrival: EMS - History of Present Illness Initial comments: 64-year-old male sent by Dr. Fournier for DVT rule right lower extremity. Patient underwent balloon angioplasty of right leg 4 days ago and states he has had pain in the medial aspect of the right upper leg since. He was started on Plavix 2 days ago. Denies redness, swelling, history of blood clots. Denies fevers, chills, nausea, vomiting. - Related Data Home Medications Medication Instructions Recorded Confirmed Levothyroxine Sodium [Synthroid] 112 mcg PO DAILY 02/13/17 10/07/24 Aspirin 81 mg PO DAILY 10/05/24 10/07/24 Evolocumab [Repatha Sureclick] 140 mg SQ Q14D 10/05/24 10/07/24 Ezetimibe [Zetia] 10 mg PO DAILY 10/05/24 10/07/24 Losartan [Cozaar] 50 mg PO DAILY 10/05/24 10/07/24 Previous Rx's Medication Instructions Recorded Clopidogrel [Plavix] 75 mg PO DAILY #90 tablet 10/08/24 Allergies Allergy/AdvReac Type Severity Reaction Status Date / Time cephalexin monohydrate AdvReac Itching Verified 10/12/24 18:01 [From Keflex] simvastatin AdvReac Itching Verified 10/12/24 18:01 tramadol HCl [From Ultram] AdvReac Itching Verified 10/12/24 18:01 Review of Systems ROS Statement: Those systems with pertinent positive or pertinent negative responses have been documented in the HPI. ROS Other: All systems not noted in ROS Statement are negative. Past Medical History Past Medical History: Coronary Artery Disease (CAD), Cancer, Hyperlipidemia, Hypertension, Prostate Disorder, Thyroid Disorder, Vascular Disorder Additional Past Medical History / Comment(s): chronic back pain and right shoulder pain., pseudogout knees, hx of prostate cancer 2015-now back w/mets, is on hormone therapy currently, some urinary leakage due to radiation in past, leg pain, feet going numb, aortic valve stenosis, carotid stenosis History of Any Multi-Drug Resistant Organisms: None Reported Past Surgical History: Appendectomy, Tonsillectomy Additional Past Surgical History / Comment(s): 02-23-15 robotic assisted prostatectomy,bilateral lymphadenectomy, sinus sx, prostate bx., ear tubes Past Anesthesia/Blood Transfusion Reactions: No Reported Reaction Past Psychological History: No Psychological Hx Reported Smoking Status: Former smoker Past Alcohol Use History: None Reported Past Drug Use History: None Reported - Past Family History Sister(s) Family Medical History: Coronary Artery Disease (CAD), Diabetes Mellitus, Myocardial Infarction (NE), Vascular Disorder Mother Family Medical History: Hypertension General Exam General appearance: alert, in no apparent distress Head exam: Present: atraumatic, normocephalic, normal inspection Eye exam: Present: normal appearance, PERRL, EOMI. Absent: scleral icterus, conjunctival injection, periorbital swelling Right Hip exam: Present: normal inspection, full ROM. Absent: tenderness, swelling Upper Leg exam: Present: normal inspection (Minimal contusion present to right inguinal area at incision site of procedure, no erythema or drainage), full ROM, tenderness (Mild diffuse tenderness over upper right leg with no edema or erythema). Absent: swelling Knee exam: Present: normal inspection, full ROM. Absent: tenderness, swelling Lower Leg exam: Present: normal inspection, full ROM. Absent: tenderness, s welling Ankle exam: Present: normal inspection, full ROM. Absent: tenderness, swelling Foot/Toe exam: Present: normal inspection, full ROM. Absent: tenderness, swelling Neurovascular tendon exam: Present: no vascular compromise. Absent: pulse deficit, abnormal cap refill, sensory deficit Neurological exam: Present: alert, oriented X3 Psychiatric exam: Present: normal affect, normal mood Skin exam: Present: warm, dry, intact, normal color. Absent: rash Course Vital Signs 10/12/24 10/12/24 17:57 19:29 Temperature 97.9 F 97.8 F Pulse Rate 89 87 Respiratory 19 18 Rate Blood Pressure 184/94 156/92 O2 Sat by Pulse 100 100 Oximetry Medical Decision Making - Medical Decision Making Was pt. sent in by a medical professional or institution (, PA, DIALYSIS NURSE, urgent care, hospital, or half-way...) When possible be specific @ -Sent by Dr. Fournier for DVT rule out Did you speak to anyone other than the patient for history (EMS, parent, family, police, friend...)? What history was obtained from this source @ -No Did you review nursing and triage notes (agree or disagree)? Why? @ -I reviewed and agree with nursing and triage notes Were old charts reviewed (outside hosp., previous admission, EMS record, old EKG, old radiological studies, urgent care reports/EKG's, half-way records)? Report findings @ -No old charts were reviewed Differential Diagnosis (chest pain, altered mental status, abdominal pain women, abdominal pain men, vaginal bleeding, weakness, fever, dyspnea, syncope, headache, dizziness, GI bleed, back pain, seizure, CVA, palpatations, mental health, musculoskeletal)? @ -Differential Musculoskeletal Muscular strain, contusion, ligament sprain, fracture, arthritis, septic arthritis, bursitis, cellulitis, muscle spasm, nerve compression, DVT, arterial occlusion, herpes zoster, electrolyte abnormality, tumor.... This is not meant to be in all inclusive list EKG interpreted by me (3pts min.). @ -None X-rays interpreted by me (1pt min.). @ -None done CT interpreted by me (1pt min.). @ -None done U/S interpreted by me (1pt. min.). @ -Ultrasound negative for DVT What testing was considered but not performed or refused? (CT, X-rays, U/S, labs)? Why? @ -None What meds were considered but not given or refused? Why? @ -None Did you discuss the management of the patient with other professionals (professionals i.e. , PA, DIALYSIS NURSE, lab, RT, psych nurse, vp digital marketing social media and crm, early childhood, teacher, credit review officer, director of casework services)? Give summary @ -No Was smoking cessation discussed for >3mins.? @ -No Was critical care preformed (if so, how long)? @ -No Were there social determinants of health that impacted care today? How? (Homelessness, low income, unemployed, alcoholism, drug addiction, transportation, low edu. Level, literacy, decrease access to med. care, fci, rehab)? @ -No Was there de-escalation of care discussed even if they declined (Discuss DNR or withdrawal of care, Hospice)? DNR status @ -No What co-morbidities impacted this encounter? (DM, HTN, Smoking, COPD, CAD, Cancer, CVA, ARF, Chemo, Hep., AIDS, mental health diagnosis, sleep apnea, morbid obesity)? @ -None Was patient admitted / discharged? Hospital course, mention meds given and route, prescriptions, significant lab abnormalities, going to OR and other pertinent info. @ -Discharge. This is a 64-year-old male presenting for right lower extremity pain status post balloon angioplasty [address] Fournier. Patient was sent by Dr. Fournier today for DVT rule out. Pain is located on medial aspect of right upper leg. Patient is hypertensive on initial examination, otherwise vitals wnl. No erythema, edema, or drainage. DP pulses present and equal bilaterally. Analgesics provided for supportive care. Ultrasound right lower extremity negative for DVT. Upon reevaluation, blood pressure reduces to 156/92. Results discussed with patient. I believe it is safe to discharge patient home with close outpatient follow-up. Patient is agreeable to this plan. Case was discussed with my ED attending Dr. Ng. Undiagnosed new problem with uncertain prognosis? @ -No Drug Therapy requiring intensive monitoring for toxicity (Heparin, Nitro, Insulin, Cardizem)? @ -No Were any procedures done? @ -No Diagnosis/symptom? @ -Right lower extremity pain Acute, or Chronic, or Acute on Chronic? @ -Acute Uncomplicated (without systemic symptoms) or Complicated (systemic symptoms)? @ -Uncomplicated Side effects of treatment? @ -No Exacerbation, Progression, or Severe Exacerbation? @ -No Poses a threat to life or bodily function? How? (Chest pain, USA, NE, pneumonia, PE, COPD, DKA, ARF, appy, cholecystitis, CVA, Diverticulitis, Homicidal, Suicidal, threat to staff... and all critical care pts) @ -Not at this time Disposition Clinical Impression: Pain of right lower extremity Disposition: HOME SELF-CARE Condition: Stable Additional Instructions: Follow-up with Dr. Fournier as discussed. Please return to the Emergency Department if symptoms worsen or any other concerns. Is patient prescribed a controlled substance at d/c from ED?: No Referrals: Unruly Guzman DO [Primary Care Provider] - 1-2 days Time of Disposition: 19:19
[2024-10-12] MEDS: ACETAMINOPHEN TAB 500 MG TAB PO STA (18:30)
--- NOTE | 2024-10-12 19:05 | US ---
EXAMINATION TYPE: US venous doppler duplex LE RT DATE OF EXAM: 10/12/2024 6:45 PM COMPARISON: NONE CLINICAL INDICATION: Male, 64 years old with history of pain; Patient states balloon angioplasty 4 da ys ago. Patient pain in thigh. No hx dvt. Patient takes aspirin and plavix. No redness or swelling, P ain TECHNIQUE: The lower extremity deep venous system is examined utilizing real time linear array sonog bobby with graded compression, color doppler sonography, and spectral doppler. SIDE PERFORMED: Right FINDINGS: VESSELS IMAGED: Common Femoral Vein Deep Femoral Vein Greater Saphenous Vein * Femoral Vein Popliteal Vein Small Saphenous Vein * Proximal Calf Veins (* superficial vessels) Right Leg: Appears negative for dvt, Color Doppler imaging shows patency of the vessels. Spectral wa veforms are within normal limits. Patient unable to tolerate femoral vein compressions, however good color and spectral waveforms seen within. IMPRESSION: No ultrasound evidence for deep venous thrombosis right lower extremity. [facility], Workstation: [facility], 10/12/2024 7:03 PM
[2024-10-12 19:31] VITALS: BP 156/92; PULSE 87; RESP 18; TEMP 97.8
== END 2024-10-12 19:31 | disposition home or self-care (01) ==
LOC: EC 17:51
DX: M79.604 Pain in right leg (principal); Z87.891 Personal history of nicotine dependence; Z88.6 Allergy status to analgesic agent; Z88.1 Allergy status to other antibiotic agents; Z88.8 Allergy status to other drugs, medicaments and biological substances
CPT/HCPCS: 99283

== ENCOUNTER → 2024-11-01 | Outpatient (CLI) | payer BC | END | disposition home or self-care (01) | LOC: LABWHC1 11:53 | PROVIDERS: ATTEND Radiology Radiation Oncology | DX: C61 Malignant neoplasm of prostate (principal); R35.1 Nocturia; Z90.89 Acquired absence of other organs; Z90.79 Acquired absence of other genital organ(s) | CPT/HCPCS: 36415; 84153 ==

== ENCOUNTER 2024-12-16 14:41 | Emergency (ER) | payer BC ==
[2024-12-16 15:29] VITALS: RESP 18
--- NOTE | 2024-12-16 16:26 | ED ---
General Adult HPI - General Source: patient, RN notes reviewed Mode of arrival: ambulatory Limitations: no limitations <Ren Cespedes - Last Filed: 12/16/24 16:24> <JassimichelleReyna Jose - Last Filed: 12/16/24 23:46> - General Chief complaint: Extremity Injury, Lower Stated complaint: leg weakness Time Seen by Provider: 12/16/24 14:57 - History of Present Illness Initial comments: Quick note: This is a 64-year-old male with history of prostate CA and vascular disease presenting with RLE pain x 3 days. Patient states he called his date night caregiver, Dr. Fournier, who advised to go to ER to rule out vascular occlusion. Patient Dors is worsening RLE pain when walking with associated burning sensation in right foot. Endorses history of vascular balloon in RLE due to arterial occlusion. Denies chest pain, dyspnea, RLE color change/edema. (Ren Cespedes) - Related Data Home Medications Medication Instructions Recorded Confirmed Levothyroxine Sodium [Synthroid] 112 mcg PO DAILY 02/13/17 10/07/24 Aspirin 81 mg PO DAILY 10/05/24 10/07/24 Evolocumab [Repatha Sureclick] 140 mg SQ Q14D 10/05/24 10/07/24 Ezetimibe [Zetia] 10 mg PO DAILY 10/05/24 10/07/24 Losartan [Cozaar] 50 mg PO DAILY 10/05/24 10/07/24 Previous Rx's Medication Instructions Recorded Clopidogrel [Plavix] 75 mg PO DAILY #90 tablet 10/08/24 methylPREDNISolone Dose Pack 4 mg PO DIRECTED #1 packet 12/09/24 [Medrol Dose Pack] HYDROcodone/APAP 5-325MG [Josephine 1 tab PO Q6HR PRN 3 Days #12 tab 12/16/24 5-325] Allergies Allergy/AdvReac Type Severity Reaction Status Date / Time cephalexin monohydrate AdvReac Itching Verified 12/16/24 15:29 [From Keflex] simvastatin AdvReac Itching Verified 12/16/24 15:29 tramadol HCl [From Ultram] AdvReac Itching Verified 12/16/24 15:29 Review of Systems ROS Other: All systems not noted in ROS Statement are negative. <Ren Cespedes - Last Filed: 12/16/24 16:24> ROS Other: All systems not noted in ROS Statement are negative. <MylesReyna Jose - Last Filed: 12/16/24 23:46> ROS Statement: Those systems with pertinent positive or pertinent negative responses have been documented in the HPI. Past Medical History Past Medical History: Coronary Artery Disease (CAD), Cancer, Hyperlipidemia, Hypertension, Prostate Disorder, Thyroid Disorder, Vascular Disorder Additional Past Medical History / Comment(s): chronic back pain and right shoulder pain., pseudogout knees, hx of prostate cancer 2015-now back w/mets, is on hormone therapy currently, some urinary leakage due to radiation in past, leg pain, feet going numb, aortic valve stenosis, carotid stenosis History of Any Multi-Drug Resistant Organisms: None Reported Past Surgical History: Appendectomy, Heart Catheterization, Tonsillectomy Additional Past Surgical History / Comment(s): 02-23-15 robotic assisted prostatectomy,bilateral lymphadenectomy, sinus sx, prostate bx., ear tubes Past Anesthesia/Blood Transfusion Reactions: No Reported Reaction Past Psychological History: No Psychological Hx Reported Smoking Status: Former smoker Past Alcohol Use History: None Reported Past Drug Use History: None Reported - Past Family History Sister(s) Family Medical History: Coronary Artery Disease (CAD), Diabetes Mellitus, Myocardial Infarction (ID), Vascular Disorder Mother Family Medical History: Hypertension <Ren Cespedes - Last Filed: 12/16/24 16:24> General Exam Limitations: no limitations <Ren Cespedes - Last Filed: 12/16/24 16:24> - General Exam Comments Initial Comments: Visual Physical Exam Vital signs reviewed General: Well-appearing, nontoxic, no acute distress. Head: Normocephalic, atraumatic Eyes: PERRLA, EOMI ENT: Airway patent Chest: Nonlabored breathing Skin: No visual rash, normal skin tone Neuro: Alert and oriented 3 Musculoskeletal: No gross abnormalities (Ren Cespedes) Course Vital Signs 12/16/24 12/16/24 15:25 22:06 Temperature 97.9 F 98.3 F Pulse Rate 89 95 Respiratory 18 18 Rate Blood Pressure 117/69 137/85 O2 Sat by Pulse 99 98 Oximetry Medical Decision Making <Ren Cespedes - Last Filed: 12/16/24 16:24> - Lab Data Result diagrams: 12/16/24 16:24 12/16/24 16:24 <Reyna Bueno - Last Filed: 12/16/24 23:46> - Medical Decision Making I completed the quick note portion of this chart signed ELIJAH Do (Ren Cespedes) Was pt. sent in by a medical professional or institution (DANNY Yadav, ORTHOPAEDIC PHYSICIAN ASSISTANT, urgent care, hospital, or shelter...) When possible be specific @ -[No] Did you speak to anyone other than the patient for history (EMS, parent, family, police, friend...)? What history was obtained from this source @ -[No] Did you review nursing and triage notes (agree or disagree)? Why? @ -[I reviewed and agree with nursing and triage notes] Were old charts reviewed (outside hosp., previous admission, EMS record, old EKG, old radiological studies, urgent care reports/EKG's, shelter records)? Report findings @ -[No old charts were reviewed] Differential Diagnosis (chest pain, altered mental status, abdominal pain women, abdominal pain men, vaginal bleeding, weakness, fever, dyspnea, syncope, headache, dizziness, GI bleed, back pain, seizure, CVA, palpatations, mental health, musculoskeletal)? @ -[not applicable] EKG interpreted by me (3pts min.). @ -Yes and demonstrates sinus rhythm with a rate of 85. ME interval 153. QRS 96. QTc of 414. No acute ST segment elevations or depressions X-rays interpreted by me (1pt min.). @ -[None done] CT interpreted by me (1pt min.). @ -[None done] U/S interpreted by me (1pt. min.). @ -[None done] What testing was considered but not performed or refused? (CT, X-rays, U/S, labs)? Why? @ -[None] What meds were considered but not given or refused? Why? @ -[None] Did you discuss the management of the patient with other professionals (professionals i.e. DANNY Yadav, ORTHOPAEDIC PHYSICIAN ASSISTANT, lab, RT, psych nurse, case management social worker, flying squad salesperson, teacher, anti air warfare operations officer, case manager specialist)? Give summary @ -[No] Was smoking cessation discussed for >3mins.? @ -[No] Was critical care preformed (if so, how long)? @ -[No] Were there social determinants of health that impacted care today? How? (Homelessness, low income, unemployed, alcoholism, drug addiction, transportation, low edu. Level, literacy, decrease access to med. care, custodial, rehab)? @ -[No] Was there de-escalation of care discussed even if they declined (Discuss DNR or withdrawal of care, Hospice)? DNR status @ -[No] What co-morbidities impacted this encounter? (DM, HTN, Smoking, COPD, CAD, Cancer, CVA, ARF, Chemo, Hep., AIDS, mental health diagnosis, sleep apnea, morbid obesity)? @ -[None] Was patient admitted / discharged? Hospital course, mention meds given and route, prescriptions, significant lab abnormalities, going to OR and other perti nent info. @ -[hospital course] Undiagnosed new problem with uncertain prognosis? @ -[No] Drug Therapy requiring intensive monitoring for toxicity (Heparin, Nitro, Insulin, Cardizem)? @ -[No] Were any procedures done? @ -[No] Diagnosis/symptom? @ -[default] Acute, or Chronic, or Acute on Chronic? @ -[default] Uncomplicated (without systemic symptoms) or Complicated (systemic symptoms)? @ -[default] Side effects of treatment? @ -[No] Exacerbation, Progression, or Severe Exacerbation? @ -[No] Poses a threat to life or bodily function? How? (Chest pain, USA, ID, pneumonia, PE, COPD, DKA, ARF, appy, cholecystitis, CVA, Diverticulitis, Homicidal, Suicidal, threat to staff... and all critical care pts) @ -[No] (Reyna Bueno) - Lab Data Lab Results 12/16/24 12/16/24 12/16/24 Range/Units 16:24 16:24 16:24 WBC 9.7 (3.8-10.6) k/uL RBC 3.93 L (4.30-5.90) m/uL Hgb 11.7 L (13.0-17.5) gm/dL Hct 37.6 L (39.0-53.0) % MCV 95.5 (80.0-100.0) fL MCH 29.7 (25.0-35.0) pg MCHC 31.1 (31.0-37.0) g/dL RDW 13.7 (11.5-15.5) % Plt Count 364 (150-450) k/uL MPV 7.0 Neutrophils % 84 % Lymphocytes % 4 % Monocytes % 8 % Eosinophils % 3 % Basophils % 0 % Neutrophils # 8.1 H (1.3-7.7) k/uL Lymphocytes # 0.4 L (1.0-4.8) k/uL Monocytes # 0.7 (0-1.0) k/uL Eosinophils # 0.3 (0-0.7) k/uL Basophils # 0.0 (0-0.2) k/uL PT 9.8 L (10.0-12.5) sec INR 0.9 (<1.2) APTT 23.4 (22.0-30.0) sec Sodium 132 L (137-145) mmol/L Potassium 4.8 (3.5-5.1) mmol/L Chloride 96 L (98-107) mmol/L Carbon Dioxide 24 (22-30) mmol/L Anion Gap 12 mmol/L BUN 41 H (9-20) mg/dL Creatinine 1.10 (0.66-1.25) mg/dL Est GFR (CKD-EPI)AfAm 83 (>60 ml/min/1.73 sqM) Est GFR (CKD-EPI)NonAf 72 (>60 ml/min/1.73 sqM) Glucose 105 H (74-99) mg/dL Calcium 8.9 (8.4-10.2) mg/dL Magnesium 2.1 (1.6-2.3) mg/dL Total Bilirubin 0.7 (0.2-1.3) mg/dL AST 25 (17-59) U/L ALT 16 (4-49) U/L Alkaline Phosphatase 55 (38-126) U/L Troponin I (0.000-0.034) ng/mL Total Protein 7.1 (6.3-8.2) g/dL Albumin 4.2 (3.5-5.0) g/dL 12/16/24 Range/Units 16:24 WBC (3.8-10.6) k/uL RBC (4.30-5.90) m/uL Hgb (13.0-17.5) gm/dL Hct (39.0-53.0) % MCV (80.0-100.0) fL MCH (25.0-35.0) pg MCHC (31.0-37.0) g/dL RDW (11.5-15.5) % Plt Count (150-450) k/uL MPV Neutrophils % % Lymphocytes % % Monocytes % % Eosinophils % % Basophils % % Neutrophils # (1.3-7.7) k/uL Lymphocytes # (1.0-4.8) k/uL Monocytes # (0-1.0) k/uL Eosinophils # (0-0.7) k/uL Basophils # (0-0.2) k/uL PT (10.0-12.5) sec INR (<1.2) APTT (22.0-30.0) sec Sodium (137-145) mmol/L Potassium (3.5-5.1) mmol/L Chloride (98-107) mmol/L Carbon Dioxide (22-30) mmol/L Anion Gap mmol/L BUN (9-20) mg/dL Creatinine (0.66-1.25) mg/dL Est GFR (CKD-EPI)AfAm (>60 ml/min/1.73 sqM) Est GFR (CKD-EPI)NonAf (>60 ml/min/1.73 sqM) Glucose (74-99) mg/dL Calcium (8.4-10.2) mg/dL Magnesium (1.6-2.3) mg/dL Total Bilirubin (0.2-1.3) mg/dL AST (17-59) U/L ALT (4-49) U/L Alkaline Phosphatase (38-126) U/L Troponin I <0.012 (0.000-0.034) ng/mL Total Protein (6.3-8.2) g/dL Albumin (3.5-5.0) g/dL Disposition <Ren Cespedes - Last Filed: 12/16/24 16:24> Is patient prescribed a controlled substance at d/c from ED?: Yes When asked, does pt state using other controlled substances?: No If prescribed controlled substance>3 days was MAPS reviewed?: Prescribed <3 Days If opioid is for acute pain is fill amount 7 days or less?: Yes Time of Disposition: 22:10 <MylesReyna Jose - Last Filed: 12/16/24 23:46> Clinical Impression: Bakers cyst, PAD (peripheral artery disease) Disposition: HOME SELF-CARE Condition: Stable Instructions (If sedation given, give patient instructions): Henning Cyst (ED) Additional Instructions: Please take the pain medication as needed. Follow-up with your date night caregiver and orthopedist in regards to the findings. Return for any new or worsening symptoms Prescriptions: HYDROcodone/APAP 5-325MG [Josephine 5-325] 1 tab PO Q6HR PRN 3 Days #12 tab PRN Reason: Severe Breakthrough Pain Referrals: Unruly Guzman DO [Primary Care Provider] - 1-2 days Jono Portillo MD [STAFF PHYSICIAN] - 1-2 days Roberto Foley MD [STAFF PHYSICIAN] - 1-2 days
--- NOTE | 2024-12-16 18:20 | US ---
EXAMINATION TYPE: US venous doppler duplex LE RT DATE OF EXAM: 12/16/2024 6:11 PM COMPARISON: US 10/12/2024 CLINICAL INDICATION: Male, 64 years old with history of pain; Patient states pain mostly behind the k nee/ into the calf. No swelling or redness. No hx DVT. patient takes baby aspirin. Patient states bal loon angioplasty in his leg recently, Pain TECHNIQUE: The lower extremity deep venous system is examined utilizing real time linear array sonog bobby with graded compression, color doppler sonography, and spectral doppler. SIDE PERFORMED: Right FINDINGS: VESSELS IMAGED: Common Femoral Vein Deep Femoral Vein Greater Saphenous Vein * Femoral Vein Popliteal Vein Small Saphenous Vein * Proximal Calf Veins (* superficial vessels) Right Leg: Negative for DVT, Color Doppler imaging shows patency of the vessels. Spectral waveforms are within normal limits. There is an approximately 8.4 x 2.2 x 5.0cm complex fluid collection seen w ithin the medial rt calf near patients AOC IMPRESSION: 1. No evidence of deep vein thrombosis of the right lower extremity. Fairly moderate size oval-shaped anechoic fluid collection in the calf likely reflects a acute hemato ma given patient's history [facility], , 12/16/2024 6:18 PM
[2024-12-16 18:58] LABS: Basophils % (A) 0 %; Eosinophils # (A) 0.3 k/uL (0-0.7); Eosinophils % (A) 3 %; HCT 37.6 % (39.0-53.0); HGB 11.7 gm/dL (13.0-17.5); Lymphocytes # (A) 0.4 k/uL (1.0-4.8); Lymphocytes % (A) 4 %; MCH 29.7 pg (25.0-35.0); MCHC 31.1 g/dL (31.0-37.0); MCV 95.5 fL (80.0-100.0); Monocytes # (A) 0.7 k/uL (0-1.0); Monocytes % (A) 8 %; Neutrophils # (A) 8.1 k/uL (1.3-7.7); Neutrophils % (A) 84 %; Platelet Count 364 k/uL (150-450); RBC 3.93 m/uL (4.30-5.90); RDW 13.7 % (11.5-15.5); WBC 9.7 k/uL (3.8-10.6)
[2024-12-16 19:11] LABS: INR 0.9 (<1.2)
[2024-12-16 19:12] LABS: Partial Thromboplastin Time 23.4 sec (22.0-30.0); Prothrombin Time 9.8 sec (10.0-12.5)
--- NOTE | 2024-12-16 19:31 | XR ---
EXAMINATION TYPE: XR chest 2V DATE OF EXAM: 12/16/2024 CLINICAL INDICATION: Male, 64 years old with history of Dizziness, TECHNIQUE: Frontal and lateral views of the chest are obtained. COMPARISON: None FINDINGS: There is no focal air space opacity, pleural effusion, or pneumothorax seen. The cardiac silhouette size is mildly enlarged. The osseous structures are demineralized. IMPRESSION: Mild cardiomegaly without acute pulmonary process. [facility], , 12/16/2024 7:29 PM
[2024-12-16 20:01] LABS: ALT 16 U/L (4-49); African American GFR (CKD) 83 (>60 ml/min/1.73 sqM); Anion Gap 12 mmol/L; Blood Urea Nitrogen 41 mg/dL (9-20); Calcium 8.9 mg/dL (8.4-10.2); Carbon Dioxide 24 mmol/L (22-30); Chloride 96 mmol/L (98-107); Glucose 105 mg/dL (74-99); Non-African American GFR(CKD) 72 (>60 ml/min/1.73 sqM); Sodium 132 mmol/L (137-145); Total Bilirubin 0.7 mg/dL (0.2-1.3)
[2024-12-16 20:05] LABS: AST 25 U/L (17-59); Magnesium 2.1 mg/dL (1.6-2.3); Potassium 4.8 mmol/L (3.5-5.1)
[2024-12-16 20:06] LABS: Albumin 4.2 g/dL (3.5-5.0); Alkaline Phosphatase 55 U/L (38-126); Total Protein 7.1 g/dL (6.3-8.2)
[2024-12-16] MEDS ORDERED: RX INFO: IV CONTRAST WAS GIVEN 1 EACH MISC MISCELLANE PRN (20:59)
[2024-12-16] MEDS: HYDROcodone/APAP 7.5-325MG 1 EACH TAB PO ONE (21:36)
--- NOTE | 2024-12-16 21:47 | CT ---
EXAMINATION TYPE: CT angio lower extremity RT DATE OF EXAM: 12/16/2024 9:37 PM COMPARISON: CT abdomen and pelvis May 25, 2024 HISTORY: Pt presents to ED for c/o pain in right leg. Pt states sent by resistance brazer to r/o blockages . R/O blockages CT DLP: 1298.4 mGycm Automated exposure control for dose reduction was used. TECHNIQUE: Performed with IV Contrast, patient injected with 100mL of Isovue [id number]. 3D reconstructed images are created on an independent workstation and reviewed.. FINDINGS: Moderate peripheral plaque in the abdominal aorta is redemonstrated. There is persistent moderate to severe mixed plaque in the right common iliac artery without significant stenosis. Moderate to severe peripheral mixed plaque in the external iliac artery is seen without significant stenosis. There is moderate peripheral plaque in the right common femoral artery. There is patent deep femoral artery. T here is moderate to severe mixed plaque along the course of the right superficial femoral artery with out significant stenosis. There is less prominent plaque in the proximal to mid popliteal artery. The re is moderate mixed plaque in the mid to distal popliteal artery. There is satisfactory bifurcation and trifurcation with good three-vessel flow in the mid leg and two-vessel flow in the mid to distal leg. There is only a single vessel flow at the level of the ankle. IMPRESSION: MODERATE TO SEVERE DIFFUSE ATHEROSCLEROTIC CHANGE FROM DISTAL ABDOMINAL AORTA EXTENDING BELOW THE RIG HT KNEE WITHOUT HEMODYNAMICALLY SIGNIFICANT STENOSIS. THERE IS HOWEVER POOR FLOW IN THE DISTAL LEG IN THE RIGHT ANTERIOR TIBIAL ARTERY CONSISTENT WITH SIGNIFICANT PERIPHERAL ARTERIAL DISEASE. [facility], , 12/16/2024 9:45 PM
[2024-12-16 22:10] VITALS: BP 137/85; PULSE 95; TEMP 98.3
== END 2024-12-16 22:22 | disposition home or self-care (01) ==
LOC: EC 14:41
DX: M71.21 Synovial cyst of popliteal space [Baker], right knee (principal); I73.9 Peripheral vascular disease, unspecified; Z87.891 Personal history of nicotine dependence
CPT/HCPCS: 36415; 93005; 80053; 83735; 84484; 85025; 85610; 85730; 71046; 93971; 73706; 99284; Q9967